=== PATIENT | female | born 1935 | race Caucasian/White ===

== ENCOUNTER 2024-03-10 11:48 | Outpatient (CLI) | payer MEDICARE, BC, SELFPAY | END 2024-03-10 11:49 | disposition home or self-care (01) | LOC: AMB 03-14 06:39 | PROVIDERS: PCP Surgery; Visit Provider Student in an Organized Health Care Education/Training Program | DX: R42 Dizziness and giddiness (principal) | CPT/HCPCS: A0425; A0429 ==

== ENCOUNTER 2024-03-10 12:11 | Emergency (ER) | payer MEDICARE, BC, SELFPAY ==
[2024-03-10] VITALS (12 sets, daily range): BP systolic 118–158; BP diastolic 54–98; PULSE 74–85; RESP 16–18; TEMP 37.7–38.6; O2SAT 90–96; BMI 21.6
--- NOTE | 2024-03-10 12:38 | CRLHL7_ITS ---
For Patients: As a result of the Cures Act, medical imaging exams and procedure reports are released immediately into your electronic medical record. You may view this report before your referring provider. If you have questions, please contact your health care provider. INDICATION: Fever. TECHNIQUE: Chest 2 views. COMPARISON: None FINDINGS: Cardiovascular and mediastinum: [id number] cardiomegaly with a CT ratio of 16.8/27.2. Normal mediastinum. Lungs and pleural spaces: Lungs are clear. No sign of infiltrate or mass. No sign of pleural effusion. No pneumothorax. Bones and soft tissues: Mild anterior wedging of a midthoracic vertebrae. Diffuse bone demineralization. IMPRESSION: [id number] cardiomegaly. Dictated by Wes Skelton MD @ 03/10/2024 1:19:33 PM (Electronically Signed)
[2024-03-10 13:13] LABS: PCR FLU A POSITIVE PCR FLU A (Negative); PCR FLU B Negative PCR FLU B (Negative); PCR RSV Negative PCR RSV (Negative); SARS PCR* Negative SARS-CoV-2 (Negative)
[2024-03-10 13:28] LABS: Lactate Sepsis w/Reflex* 1.2 mmol/L (0.5-1.9)
[2024-03-10 13:33] LABS: Basophils Absolute Auto 0.02 K/uL (0.00-0.30); Basophils Percent Auto 0.2 % (0.0-3.0); Eosinophils Absolute Auto 0.02 K/uL (0.00-0.50); Eosinophils Percent Auto 0.2 % (0.0-7.0); Hematocrit 34.2 % (33.0-51.0); Hemoglobin* 10.8 gm/dL (12.0-16.0); Immature Granulocytes Abs Auto 0.06 K/uL (0.00-0.30); Immature Granulocytes Pct Auto 0.7 %; Lymphocytes Percent Auto 6.2 % (20-44); Mean Corpuscular HGB Conc 32 gm/dL (32-36); Mean Corpuscular Hemoglobin 31 pg (26-34); Mean Corpuscular Volume 98 fL (80-100); Monocytes Percent Auto 14.8 % (0.0-11.0); Neutrophils Percent Auto 77.9 % (42.0-72.0); Platelet Count* 218 K/uL (140-440); RDW Coefficient of Variation % 11.8 % (11.5-15.5); Red Blood Count 3.48 m/uL (4.00-5.20); White Blood Count* 8.74 K/uL (4.50-11.00)
[2024-03-10 13:34] LABS: Slide Review Reflex No
[2024-03-10] MEDS: LACTATED RINGERS 1000 ML 1,000 ML IV (13:39)
[2024-03-10] MEDS: ACETAMINOPHEN 325 MG TABLET 650 MG PO (13:39)
[2024-03-10 13:46] LABS: Chloride* 103 mmol/L (96-114); Potassium* 4.1 mmol/L (3.6-5.1); Sodium* 138 mmol/L (135-149)
[2024-03-10 13:48] LABS: Anion Gap 6 mEq/L (7-15); Aspartate Amino Transferase* 21 U/L (12-35); Bilirubin Total* 0.4 mg/dL (0.1-1.5); Blood Urea Nitrogen* 21 mg/dL (7-30); Carbon Dioxide* 29 mmol/L (20-32); Creatinine* 0.9 mg/dL (0.5-1.5); Est. Creatinine Clearance* 34.99; Estimated Glomerular Filt Rate 61 ml/min; Total Protein* 8.9 g/dL (6.0-8.3)
[2024-03-10 13:49] LABS: Alanine Aminotransferase* 14 U/L (4-35); Alkaline Phosphatase* 84 U/L (40-150); Calcium* 9.3 mg/dL (8.4-10.6); Glucose* 103 mg/dL (60-115); Magnesium* 2.1 mg/dL (1.5-2.6)
[2024-03-10 14:01] LABS: Troponin I* 0.02 ng/mL (0.01-0.04)
--- NOTE | 2024-03-10 14:48 | ED_ITS ---
HPI - General Adult General Date Seen: 03/10/24 Chief complaint: Dizziness/Vertigo Stated complaint: dizziness Time Seen by Provider: 03/10/24 12:24 Source: patient Mode of arrival: ambulatory Limitations: no limitations History of Present Illness HPI narrative: Patient is an 88-year-old female presenting to emergency department for lightheadedness. States she woke up this morning feeling dizzy. When I asked if she felt like the room was spinning or she was on about she states no. She states he will feel like she is going to pass out. Symptoms resolve when she lays down. There only there when she gets up. Does not notice symptoms changing with head movement. States she felt warm like she had a fever earlier when she was at the clinic but now states she no longer feels warm. Denies chest pain, shortness of breath, headache, vision changes, weakness, numbness, abdominal pain, diarrhea, constipation. Not aware of any sick contacts. Does states she feels some fatigue. No other concerns noted Related Data Home Medications ?Medication ?Instructions ?Recorded ?Confirmed amlodipine 5 mg tablet 5 mg PO DAILY 01/25/23 03/10/24 atenolol 25 mg tablet mg PO QDAY 07/15/23 07/15/23 aspirin 81 mg tablet,delayed 81 mg PO DAILY 03/10/24 03/10/24 release (Adult Aspirin Regimen) Previous Rx's ?Medication ?Instructions ?Recorded cephalexin 500 mg capsule 500 mg PO QID #20 caps 03/10/24 ondansetron 4 mg disintegrating 4 mg PO Q6H #20 tabs 03/10/24 tablet oseltamivir 30 mg capsule 30 mg PO BID 5 days #10 caps 03/10/24 Allergies Allergy/AdvReac Type Severity Reaction Status Date / Time No Known Drug Allergies Allergy Verified 01/25/23 12:06 Review of Systems Status of ROS: Reports: 10 or more systems reviewed and unremarkable except as noted in History and below PFSH PFS Social History Smoking Status: Never smoker How often do you have a drink containing alcohol: never AUDIT-C Alcohol total score: 0 Non-prescribed substance use: denies use Exam Narrative: Exam Narrative: Const: Well-nourished, Well-developed, in mild distress Eyes: PERRL, no conjunctival injection, and symmetrical lids HENT: Atraumatic external nose and ears. Moist mucous membranes. Neck: Symmetric, trachea midline, No thyromegaly. CVS: RRR, No murmurs or gallops. Peripheral pulses 2+ and equal in all extremities RESP: Unlabored respiratory effort. Clear to auscultation bilaterally. GI: Nontender/Nondistended, No rebound or guarding. MSK:Extremities w/o deformity, Normal Active ROM Skin: Warm, Dry. No rashes or lesions. Neuro: Normal Muscle tone, No focal neurological deficits. Psych: Awake, Alert, & Oriented x3. Appropriate mood and affect. Const: Vital Signs, click to edit/add: Vital Signs - 24 hr 03/10/24 12:13 03/10/24 13:34 03/10/24 15:34 Temperature 101.4 F H 99.9 F H Pulse Rate [Pulse Oximeter] 79 Pulse Rate [orthos tatic lying] 75 Pulse Rate [orthos tatic sitting] 81 Pulse Rate [orthos tatic standing] 84 Respiratory Rate 18 Blood Pressure [Ri ght Upper Arm] 156/71 H Blood Pressure [or thostatic lying] 118/98 H Blood Pressure [or thostatic sitting] 130/61 Blood Pressure [or thostatic standing ] 125/57 L Pulse Oximetry 96 Oxygen Delivery Me thod Room Air Course Vital Signs Vital signs: Initial Vital Signs Temperature 101.4 F H 03/10/24 12:13 Temperature Source Temporal Artery Scan 03/10/24 12:13 Pulse Rate 79 03/10/24 12:13 Respiratory Rate 18 03/10/24 12:13 Blood Pressure 156/71 H 03/10/24 12:13 Blood Pressure Mean 99 03/10/24 12:13 Blood Pressure Position Supine 03/10/24 12:13 Pulse Oximetry 96 03/10/24 12:13 Oxygen Delivery Method Room Air 03/10/24 12:13 Vital Signs Temperature 101.4 F H 03/10/24 12:13 Pulse Rate 79 03/10/24 12:13 Respiratory Rate 18 03/10/24 12:13 Blood Pressure 156/71 H 03/10/24 12:13 Pulse Oximetry 96 03/10/24 12:13 Oxygen Delivery Method Room Air 03/10/24 12:13 Temperature 99.9 F H 03/10/24 15:34 Pulse Rate 75 12/31/24 13:34 Respiratory Rate 18 03/10/24 12:13 Blood Pressure 118/98 H 03/10/24 13:34 Pulse Oximetry 96 03/10/24 12:13 Oxygen Delivery Method Room Air 03/10/24 12:13 Medications Administered Medications: Discontinued Medications Generic Name Dose Route Start Last Admin Trade Name Anthony PRN Reason Stop Dose Admin Acetaminophen 650 mg 03/10/24 12:38 03/10/24 13:39 Acetaminophen 325 Mg Tablet PO 03/10/24 12:39 650 mg ONCE ONE Administration Lactated Ringer's 1,000 mls @ 1,000 mls/hr 03/10/24 12:38 03/10/24 13:39 Lactated Ringers 1000 Ml IV 03/10/24 13:37 1,000 mls/hr .Q1H ONE Administration Ondansetron HCl 4 mg 03/10/24 15:17 03/10/24 15:28 Ondansetron 2 Mg/Ml Inj IVP 03/10/24 15:18 4 mg ONCE ONE Administration Oseltamivir Phosphate 30 mg 03/10/24 15:00 03/10/24 15:32 Oseltamivir 30 Mg Capsule PO 03/10/24 15:01 30 mg ONCE ONE Administration Medical Decision Making [facility] Narrative Medical decision making narrative: Patient is an 88-year-old female presenting to emergency department for fever and lightheadedness. She states she feels dizzy but based on her description does sound more like lightheadedness. Her vital signs appear stable at this time. She does have a fever though so Tylenol will be given. With that fever I will start a blood culture and lactate as she is more likely to meet SIRS criteria. Also do COVID/flu/RSV swab. Chest x-ray ordered to look for signs of pneumonia. Also an EKG, troponin, CMP, magnesium, urinalysis. She states she has not been drinking as much as she should so will give her L of fluids for likely dehydration. The dehydration could also be part of what is causing her symptoms. Will do orthostatic blood pressures after fluid is infused. She is flu positive. Will give her a dose of Tamiflu. She does need requirements for renal dosing per pharmacy. EKG reviewed by myself shows no concerning abnormalities. Chest x-ray reviewed by myself and the radiologist shows [id number] cardiomegaly but no other concerning findings. She is looking much much better after the fluids. Orthostatic blood pressures were normal and she was asymptomatic. Was able to ambulate around the department without issues. Her family states she looks much better. Patient states she feels much better and feels comfortable with discharge. I will discharge her with Tamiflu, Zofran. Urinalysis also shows signs of a UTI and I will treat her with antibiotics. She is agreeable to this plan. Lab Data Labs: Lab Results 03/10/24 03/10/24 03/10/24 Range/Units 12:26 13:05 13:15 WBC 8.74 (4.50-11.00) K/uL RBC 3.48 L (4.00-5.20) m/uL Hgb 10.8 L (12.0-16.0) gm/dL Hct 34.2 (33.0-51.0) % MCV 98 (80-100) fL MCH 31 (26-34) pg MCHC 32 (32-36) gm/dL RDW Coeff of [place] 11.8 (11.5-15.5) % Plt Count 218 (140-440) K/uL Neut % (Auto) 77.9 H (42.0-72.0) % Lymph % (Auto) 6.2 L (20-44) % [place] % (Auto) 14.8 H (0.0-11.0) % Eos % (Auto) 0.2 (0.0-7.0) % Baso % (Auto) 0.2 (0.0-3.0) % Neut # (Auto) 6.80 (1.7-7.0) K/uL Lymph # (Auto) 0.50 L (0.90-2.90) K/uL [place] # (Auto) 1.30 H (0.00-0.90) K/UL Eos # (Auto) 0.02 (0.00-0.50) K/uL Baso # (Auto) 0.02 (0.00-0.30) K/uL Abs Immat Gran (auto) 0.06 (0.00-0.30) K/uL Imm/Tot Granulo (auto) 0.7 % Sodium 138 (135-149) mmol/L Potassium 4.1 (3.6-5.1) mmol/L Chloride 103 (96-114) mmol/L Carbon Dioxide 29 (20-32) mmol/L Anion Gap 6 L (7-15) mEq/L BUN 21 (7-30) mg/dL Creatinine 0.9 (0.5-1.5) mg/dL Estimated Creat Clear 34.99 Estimated GFR 61 ml/min Glucose 103 (60-115) mg/dL Lactate 1.2 (0.5-1.9) mmol/L Calcium 9.3 (8.4-10.6) mg/dL Magnesium 2.1 (1.5-2.6) mg/dL Total Bilirubin 0.4 (0.1-1.5) mg/dL AST 21 (12-35) U/L ALT 14 (4-35) U/L Alkaline Phosphatase 84 (40-150) U/L Troponin I 0.02 (0.01-0.04) ng/mL Total Protein 8.9 H (6.0-8.3) g/dL Albumin 4.0 (3.3-5.0) g/dL Urine Color (Yellow) Urine Appearance (Clear) Urine pH (5.0-8.5) Ur Specific [place] (1.000-1.030) Urine Protein (Negative) Urine Glucose (UA) (Negative) Urine Ketones (Negative) Urine Blood (Negative) Urine Nitrite (Negative) Urine Bilirubin (Negative) Urine Urobilinogen (0.2-1.0) Ur Leukocyte Esterase (Negative) Urine RBC (0-2) Urine WBC (0-5) Ur Squamous Epith Cells (None-Few) Urine Bacteria (None) SARS-CoV-2 (PCR) Negative SARS-CoV-2 Cancelled (Negative) Influenza Type A (PCR) POSITIVE PCR FLU A A Cancelled (Negative) Influenza Type B (PCR) Negative PCR FLU B Cancelled (Negative) RSV (PCR) Negative PCR RSV Cancelled (Negative) 03/10/24 Range/Units 15:00 WBC (4.50-11.00) K/uL RBC (4.00-5.20) m/uL Hgb (12.0-16.0) gm/dL Hct (33.0-51.0) % MCV (80-100) fL MCH (26-34) pg MCHC (32-36) gm/dL RDW Coeff of [place] (11.5-15.5) % Plt Count (140-440) K/uL Neut % (Auto) (42.0-72.0) % Lymph % (Auto) (20-44) % [place] % (Auto) (0.0-11.0) % Eos % (Auto) (0.0-7.0) % Baso % (Auto) (0.0-3.0) % Neut # (Auto) (1.7-7.0) K/uL Lymph # (Auto) (0.90-2.90) K/uL [place] # (Auto) (0.00-0.90) K/UL Eos # (Auto) (0.00-0.50) K/uL Baso # (Auto) (0.00-0.30) K/uL Abs Immat Gran (auto) (0.00-0.30) K/uL Imm/Tot Granulo (auto) % Sodium (135-149) mmol/L Potassium (3.6-5.1) mmol/L Chloride (96-114) mmol/L Carbon Dioxide (20-32) mmol/L Anion Gap (7-15) mEq/L BUN (7-30) mg/dL Creatinine (0.5-1.5) mg/dL Estimated Creat Clear Estimated GFR ml/min Glucose (60-115) mg/dL Lactate (0.5-1.9) mmol/L Calcium (8.4-10.6) mg/dL Magnesium (1.5-2.6) mg/dL Total Bilirubin (0.1-1.5) mg/dL AST (12-35) U/L ALT (4-35) U/L Alkaline Phosphatase (40-150) U/L Troponin I (0.01-0.04) ng/mL Total Protein (6.0-8.3) g/dL Albumin (3.3-5.0) g/dL Urine Color Yellow (Yellow) Urine Appearance Clear (Clear) Urine pH 7.5 (5.0-8.5) Ur Specific [place] 1.020 (1.000-1.030) Urine Protein Negative (Negative) Urine Glucose (UA) Negative (Negative) Urine Ketones Negative (Negative) Urine Blood Negative (Negative) Urine Nitrite Negative (Negative) Urine Bilirubin Negative (Negative) Urine Urobilinogen 0.2 (0.2-1.0) Ur Leukocyte Esterase 2+ A (Negative) Urine RBC 0-2 (0-2) Urine WBC 10-25 A (0-5) Ur Squamous Epith Cells Few (None-Few) Urine Bacteria Few A (None) SARS-CoV-2 (PCR) (Negative) Influenza Type A (PCR) (Negative) Influenza Type B (PCR) (Negative) RSV (PCR) (Negative) Imaging Data Chest x-ray: Attestation: I have reviewed the pertinent imaging results. Radiologist's impression: [id number] cardiomegaly. Dictated by Wes Skelton MD @ 03/10/2024 1:19:33 PM ECG Data Attestation: I personally reviewed and interpreted this ECG as follows: Prior ECG tracings: not available for review Interpretation: Normal sinus rhythm with a rate of 80 beats per minute, normal intervals, normal axis, no ST or T-wave abnormality Discharge Plan Discharge Clinical Impression: Influenza, Acute UTI, Dehydration Patient Disposition: Home, Self-Care Condition: Stable Instructions: Dehydration (ED), Influenza (DC) Additional Instructions: Take the cephalexin antibiotic as directed. Use Zofran as needed for nausea. Take Tamiflu as directed. Is important you stay well-hydrated. I believe most of your symptoms are due to dehydration secondary from influenza. Return to emergency department for new or worsening symptoms. Prescriptions: New cephalexin 500 mg capsule 500 mg PO QID Qty: 20 0RF ondansetron 4 mg tablet,disintegrating 4 mg PO Q6H Qty: 20 0RF oseltamivir 30 mg capsule 30 mg PO BID 5 Days Qty: 10 0RF No Action amlodipine 5 mg tablet 5 mg PO DAILY atenolol 25 mg tablet PO QDAY aspirin [Adult Aspirin Regimen] 81 mg tablet,delayed release (DR/EC) 81 mg PO DAILY Follow Up/Referrals: Lino James MD [Primary Care Provider] - Stand Alone Forms: [facility] Info Instructions
[2024-03-10 15:20] LABS: Appearance Urine Clear (Clear); Bilirubin Urine Negative (Negative); Blood Urine Negative (Negative); Color Urine Yellow (Yellow); Glucose Urine Negative (Negative); Ketones Urine Negative (Negative); Leukocyte Esterase Urine 2+ (Negative); Nitrite Urine Negative (Negative); Protein Urine Negative (Negative); Urobilinogen Urine 0.2 (0.2-1.0); pH Urine 7.5 (5.0-8.5)
[2024-03-10] MEDS: ONDANSETRON 2 MG/ML inj 4 MG IVP (15:28)
[2024-03-10] MEDS: OSELTAMIVIR 30 MG CAPSULE PO (15:32)
[2024-03-10 15:36] LABS: Bacteria Urine Few; RBC Urine 0-2 (0-2); Squamous Epithelial Cell Urine Few (None-Few)
== END 2024-03-10 16:00 | disposition home or self-care (01) ==
PROVIDERS: Emergency Provider Student in an Organized Health Care Education/Training Program; PCP Surgery
DX: J11.1 Influenza due to unidentified influenza virus with other respiratory manifestations (principal); N39.0 Urinary tract infection, site not specified; E86.0 Dehydration
CPT/HCPCS: 36415; 71046; 80053; 81001; 83605; 83735; 84484; 85025; 87040; 87086; 87186; 87631; 93005; 96361; 96374; 99284; 99285; A9270; J2405; J7120

== ENCOUNTER 2024-09-01 07:43 | Outpatient (CLI) | payer MEDICARE, BC, SELFPAY ==
--- OUTSIDE RECORDS SUMMARY | 2024-09-03 12:35 | XMS_ITS | Encounter Summary ---
Author Organization [facility] Address [address] [place] [address] Care Team Providers Care Video Effects Editor Name Role Phone Unavailable Primary Care Provider Unavailabl e Encounter Details Date Type Department Care Team (Late st Contact Info) Description 07/20/2024 Orders Only Pharmacy Prior Auth [place] [phone] Camille Mc [address] [place] [address] Social History Tobacco Use Types Packs/Day Years Used Date Smoking Tobacco: Never Smokeless Tobacco: Never Alcohol Use Standard Drinks/Week Comments Never 0 (1 standard drink = 0.6 oz pur e alcohol) [facility] Utilities Answer Date Recorded In the [...] your living situation today? I have a [facility] place to live 07/07/2024 Comments No Sex [...] PM [facility] Division of Hematology in [place], [place] [address] [place] [address] Roger Mann M.D. [address] [place] [address] documented as of this encounter Visit Diagnoses Not on filedocumented in this encounter Additional Health Concerns Infection Onset Date Last Indicated Resolved Time Protective Environment 07/15/2024 07/15/2024 documented as of this encounter
--- OUTSIDE RECORDS SUMMARY | 2024-09-03 12:36 | XMS_ITS | Clinical Summary ---
Author Organization [facility] Address [address] [place] [address] Care Team Providers Care Decay Control Operator Name Role Phone Unavailable Primary Care Provider Unavailabl e Source Comments Patient records contain information from all sites at [facility]. For routine questions regarding patient records, call [phone] during business hours, M-F 8:00 AM - 5:00 PM Central Time. Record requests for emergency care only can be directed to [phone] at any time.[facility] Allergies No known active allergies Medications [...] PM CDT 07/16/19 25 Active RX WELCOME MNNCAB-SCXTYJBQL-TE ONLY Welcome packet 1 each 07/31/2024 1:04 [...] 08/19/2024 Results Follow-Up Division of Hematology in [place], [place] [address] [place] [address] Loni Escamilla, RSenaitN. CBC with Differential, Blood 08/18/2024 Orders Only Division of Hematology in [place], [place] [address] [place] [address] External, Ordering Provider, M.D. 07/30/2024 Specialty Pharmacy [facility] [id number] [place] [phone] Ching Shea, Pharm.D., R.Ph. 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 Specialty Pharmacy Delivery 07/30/2024 Specialty Pharmacy [facility] [address] [phone] Elissa Frey, Pharm.D., R.Ph. 07/21/2024 Specialty Pharmacy [facility] [address] [phone] Manpreet Sagastume, Pharm.D., R.Ph. 07/20/2024 Orders Only Pharmacy [place] Auth [place] [phone] Camille Mc 07/17/2024 Orders Only Pharmacy [place] [phone] Camille Mc 07/15/2024 2:00 PM CDT Telemedicine Division of Hematology in [place], [place] [address] [place] [address] Heidy Fischer M.D. 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) 07/13/2024 3:26 PM CDT - 07/13/2024 11:59 PM CDT Hospital Encounter [place], [place] [address] [place] [address] Heidy Fischer M.D. 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) 07/07/2024 Orders Only Division of Hematology in [place], [place] [address] [place] [phone] Roger Mann M.D. 07/06/2024 Clinical Communication Division of Hematology in [place], [place] [address] [place] [phone] Heidy Fischer M.D. Follow-up Orders 07/03/2024 10:00 AM CDT Comprehensive Visit Department of Ophthalmology in [place], [place] [address] [place] [phone] Destiny Pearce M.D. Intraocular Lens Implant Status Post (Primary Dx); 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) 07/03/2024 7:41 AM CDT Anesthesia Event Outpatient Procedure Center in [place], [place] [address] [place] [phone] Belle Cardenas APRN, CRNA, D.NAkosua Barrett M.D. 07/03/2024 6:36 AM CDT - 07/03/2024 11:59 PM CDT Hospital Encounter Outpatient Procedure Center in [place], [place] [address] [place] [phone] Heidy Fischer M.D. Donnelly, Megan L, APRN, CRNA, D.N.P. 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) Discharge Disposition: Home or Self Care 07/02/2024 2:30 PM CDT Comprehensive Visit Division of Hematology in [place], [place] [address] [place] [phone] Roger Mann M.D. 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) Discharge Disposition: Home or Self Care 07/02/2024 1:00 PM CDT Clinical Support - [facility] Division of Hematology in [address] [phone] Jane Morrow 07/02/2024 Clinical Communication Department of Ophthalmology in [address] [phone] Provider, Unknown 06/30/2024 8:45 AM CDT Clinical Communication Virtual Review in [place], [place] [address] [place] [address] Pre-visit Intake 06/16/2024 Clinical Communication [facility] [place], [place] [address] [place] [phone] Alexandre Benítez M.D. from Last 3 Months Social History Tobacco Use Types Packs/Day Years Used Date Smoking Tobacco: Never Smokeless Tobacco: Never Tobacco Cessation:Counseling Given: Not Answered Alcohol Use Standard Drinks/Week Comments Never 0 (1 standard drink = 0.6 oz pur e alcohol) [facility] Utilities Answer Date Recorded In the past [...] your living situation today? I have a [employer] place to live 07/07/2024 Comments No Sex [...] PM CDT Telemedicine Division of Hematology in [place], [place] [address] [place] [address] Roger Mann M.D. [address] [place] [address] Health Maintenance Due Date Last Done Comments [...] HEMATOLOGIC, BM Routine 07/03/2024 7:55 AM CDT [place] DX BONE MARROW BX & ASPIR Routine [...] 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) [id number] (BETA-2-M), S Routine 07/02/2024 2:11 PM CDT [...] RADIOPHARMACEUTICAL/MEDS: Route: intravenous fludeoxyglucose F 18 injection [facility] (F-18 FDG),9.99 millicurie TECHNIQUE: F18 FDG PET/CT [...] RADIOPHARMACEUTICAL/MEDS: Route: intravenous fludeoxyglucose F 18 injection [facility] (F-18 FDG),9.99 millicurie TECHNIQUE: F18 FDG PET/CT [...] 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 The result should NOT [...] coexisting with a MYD88 L265P mutation. A XYR14-U464W/CXCR4-W T (wild type) molecular signature is associated with similar overall survival, higher response to ibrutinib in previously treated patients, more adenopathy, and similar or lower bone marrow disease burden and serum IgM levels in comparison to those with co-occurring HVZ77-T582M/CXCR4-W HIM mutations. In contrast, rare cases of apparent LPL with CQH60-FU/CXCR4-WT molecular signature have demonstrated inferior overall survival, lower response to ibrutinib therapy in previously treated patients, and lower bone marrow disease burden and serum IgM levels in comparison to those harboring a MYD88 L265P mutation (Angelon et al., 2014, [id number]; 2015, [id number]; Zoey et al., 2016, [id number]). Interpretation of the result in the context of all available clinical laboratory and morphologic information is recommended. Method Summary: The C-terminus end of CXCR4 (NM_003467.2, c.530-6197) is amplified from extracted genomic DNA by polymerase chain reaction (PCR), followed by [place] sequencing and capillary electrophoresis analysis. Review of the sequence data is performed using a combination of automated calls and manual inspection (Unpublished Page method). The hotspot mutation c.1013 C>A/G (p.S338*) is examined using bridged nucleic acid (BNA) clamping-enhanced [place] sequencing with an analytic sensitivity of 1%. All other genetic variants in the test region are examined by regular [place] sequencing with the analytic sensitivity of 15-20%. Signing Pathologist: Neda Saleem M.D. 07/10/2024 3:23 PM CDT DTL Comment: ----ADDITIONAL INFORMATION---- This test was developed and its performance characteristics determined by [facility] in a manner consistent with CLIA requirements. This test has not been cleared or approved by the U.S. Food and Drug Administration. 07/03/2024 7:55 AM CDT 07/03/2024 10:50 AM CDT us Roger Mann M.D. LAB GENETIC TESTING Fin al Result [facility] [address] [place] [address], [facility] D[facility] [address] [facility] [address] [place] [address] * Leukemia/Lymphoma Immunophenotyping by Flow Cytometry (07/03/2024 7:55 AM CDT) LCMS Result Performed 07/06/2024 8:55 AM CDT DTL Specimen Source Bone marrow 07/06/2024 8:55 AM CDT DTL Final Diagnosis: These results are considered ancillary findings and require complete integration with the current pathology case [id number] for final interpretation. The result should NOT [...] performance characteristics were determined by [facility] in a manner consistent with CLIA requirements. This test has not been cleared or approved by the U.S. Food and Drug Administration. 07/03/2024 7:55 AM CDT 07/03/2024 10:46 AM CDT us Roger Mann M.D. LAB GENETIC TESTING Fin al Result [facility] [address] [place] [address], [facility] 200 [facility] [address] [place] [address] * Chromosome Analysis, Hematologic Disorders, Bone Marrow (07/03/2024 7:55 AM CDT) Pathologist [facility] Result Summary Normal 07/13/2024 8:36 AM CDT [...] of the testing process was performed at [facility] site [id number], [id number]. 07/13/2024 8:36 AM CDT DTL Released by Nancy Elliott M.D. 07/13/2024 8:36 AM CDT DTL Interpretation No clonal abnormality was apparent. This test was ordered in the context of a [facility] pathology consultation/ca se (#[id number]), and this result should be interpreted within the context of the pathology consultation/re port. 07/13/2024 8:36 AM CDT DTL Bone Marrow 07/03/2024 7:55 AM CDT 07/03/2024 11:13 AM CDT us Roger Mann M.D. LAB GENETIC TESTING Fin al Result [facility] [address] [place] [address], [facility] [address] [place] [address] * IA DX BONE MARROW BX & ASPIR (07/03/2024 [...] (07/03/2024 12:00 AM CDT) 07/06/2024 9:12 AM [facility] Report electronically signed by Kenny Sutton M.D., Ph.D. I verify that I have examined all relevant slides/materials for the specimen(s) and rendered or confirmed the diagnosis. 07/06/2024 9:12 AM [facility] Gross Description B: Core biopsy specimens were [...] C1. Grossed by OER. 07/06/2024 9:12 AM [facility] Addendum ADDENDUM Cytogenetic analysis, bone marrow ([id number], 07/03/2024): 46,XX[20] No clonal abnormality was apparent. See cytogenetics report for complete details. 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 Molecular analysis for reflex testing of MYD88 and CXCR4, bone marrow ([id number]; 07/03/2024): Bone marrow, MYD88 L265P Mutation Analysis, [...] coexisting with a MYD88 L265P mutation. A NSA36-U979P/CXCR4-WT (wild type) molecular signature is associated with similar overall survival, higher response to ibrutinib in previously treated patients, more adenopathy, and similar or lower bone marrow disease burden and serum IgM levels in comparison to those with co-occurring TVZ73-A287I/CXCR4-WH IM mutations. In contrast, rare cases of apparent LPL with IKX00-AL/CXCR4-WT molecular signature have demonstrated inferior overall survival, lower response to ibrutinib therapy in previously treated patients, and lower bone marrow disease burden and serum IgM levels in comparison to those harboring a MYD88 L265P mutation (Angelon et al., 2014, [id number]; 2015, [id number]; Zoey et al., 2016, [id number]). Interpretation of the result in the context of all available clinical laboratory and morphologic information is recommended. Method Summary: The C-terminus end of CXCR4 (NM_003467.2, c.578-3966) is amplified from extracted genomic DNA by polymerase chain reaction (PCR), followed by [place] sequencing and capillary electrophoresis analysis. Review of the sequence data is performed using a combination of automated calls and manual inspection (Unpublished Page method). The hotspot mutation c.1013 C>A/G (p.S338*) is examined using bridged nucleic acid (BNA) clamping-enhanced [place] sequencing with an analytic sensitivity of 1%. All other genetic variants in the test region are examined by regular [place] sequencing with the analytic sensitivity of 15-20%. See molecular report for complete details. Molecular Hematopathology studies interpreted by Neda Saleem M.D. Signed by Kenny Sutton M.D., Ph.D. 07/13/2024 3:04 PM 07/13/2024 3:04 PM T [facility] Comment:REVISED RESULTS Interpretation FINAL DIAGNOSIS Peripheral [...] for 1 week. 07/13/2024 3:04 PM CDT [facility] 07/03/2024 07/03/2024 5:3 1 AM CDT Roger Mann M.D. LAB SURG PATH ORDERABLE S Edited Result - Final [facility] [address] [place] [address], [facility] [address] [place] [address] * (ABNORMAL) Quantitative M-protein Study (07/02/2024 2:11 [...] its performance characteristics determined by [facility] in a manner consistent with CLIA requirements. This test has not been cleared or approved by the U.S. Food and Drug Administration. Blood (Blood, Venous) 07/02/2024 2:11 PM CDT 07/03/2024 6:35 AM CDT [facility] - 07/03/2024 3:23 PM CDT Specimen Information: Specimen ID: [id number] Specimen Type: Blood Specimen Collection Start Date: 07/02/2024 2:11 PM Specimen Received Date: 07/03/2024 6:35 AM Specimen ID: [id number] Specimen Type: Blood Specimen Collection Start Date: 07/02/2024 2:11 PM Specimen Received Date: 07/03/2024 6:28 AM Heidy Fischer M.D. LAB BLOOD ADD-ON Final Res ult [facility] [address] [place], [place] [phone] [place] [address] [place] [address] [place] [address] [place] [address] [place] [address] * (ABNORMAL) Immunoglobulin Free Light Chains (07/02/2024 2:11 PM CDT) Pathologist [facility] Velva Free Light Chain, S 0.6900 0.3300 - 1.94 mg/dL 07/03/2024 10:38 AM CDT [facility] Lambda Free Light Chain, S 16.1(H) 0.5700 - 2.63 mg/dL 07/03/2024 10:54 AM CDT [facility] Velva/Lambda FLC Ratio 0.0429(L) 0.2600 - 1.65 07/03/2024 10:54 AM CDT [facility] Blood (Blood, Venous) 07/02/2024 2:11 PM CDT 07/03/2024 6:36 AM CDT us Heidy Fischer M.D. LAB BLOOD ADD-ON Final Res ult [facility] [address] [place] [address] [facility] [address] [place] [id number] * von Willebrand Disease Profile (07/02/2024 2:11 PM CDT) [facility] von Willebrand Disease Tech Inter SEE COMMENT [...] This test has been modified from the crime victim specialist's instructions. Its performance characteristics were determined by [facility] in a manner consistent with CLIA requirements. This test has not been cleared or approved by the U.S. Food and Drug Administration. von Willebrand Factor Ag, P 66 55 - 200 % 07/03/2024 10:01 AM CDT DTL Comment: ----ADDITIONAL INFORMATION---- This test has been modified from the crime victim specialist's instructions. Its performance characteristics were determined by [facility] in a manner consistent with CLIA requirements. This test has not been cleared or approved by the U.S. Food and Drug Administration. von Willebrand Factor Activity, P 58 55 - 200 % 07/03/2024 10:16 AM CDT DT Comment: ----ADDITIONAL INFORMATION---- This test has been modified from the crime victim specialist's instructions. Its performance characteristics were determined by [facility] in a manner consistent with CLIA requirements. This test has not been cleared or approved by the U.S. Food and Drug Administration. Blood (Blood, Venous) 07/02/2024 2:11 PM CDT 07/02/2024 2:37 PM CDT Narrative [facility] - 07/03/2024 10:16 AM CDT Specimen Information: Specimen ID: [id number] Specimen Type: Blood Specimen Collection Start Date: 07/02/2024 2:11 PM Specimen Received Date: 07/02/2024 2:37 PM Specimen ID: [id number] Specimen Type: Blood Specimen Collection Start Date: 07/02/2024 2:11 PM Specimen Received Date: 07/02/2024 2:37 PM Specimen ID: [id number] Specimen Type: Blood Specimen Collection Start Date: 07/02/2024 2:11 PM Specimen Received Date: 07/02/2024 2:37 PM Heidy Fischer M.D. LAB BLOOD ADD-ON Final Res ult [facility] [address] [place] [address], [facility] [address] [place] [address] * APTT (Activated Partial Thromboplastin Time) (07/02/2024 2:11 PM CDT) Pathologist [facility] Activated Partial Thrombopl Time, P 34 25 - 37 sec 07/02/2024 3:06 PM CDT DTL Blood (Blood, Venous) 07/02/2024 2:11 PM CDT 07/02/2024 2:32 PM CDT us Heidy Fischer M.D. LAB BLOOD ADD-ON Final Res ult Performing Organization Address City/[facility]/ZIP Co de Phone Number [facility] [address] [place] [address], [facility] [address] [place] [address] * Prothrombin Time (PT) (07/02/2024 2:11 PM [...] ADD-ON Final Res ult Performing Organization Address [facility] Co de Phone Number [facility] [address] [place] [address], [facility] [address] [place] [address] * LD (Lactate Dehydrogenase) (07/02/2024 2:11 PM CDT) Lactate Dehydrogenase (LD), S 130 122 - 222 U/L 07/02/2024 3:17 PM CDT DTL Blood (Blood, Venous) 07/02/2024 2:11 PM CDT 07/02/2024 2:46 PM CDT us Heidy Fischer M.D. LAB BLOOD NON ADD-ON Final Result Performing Organization Address City/[facility] Co de Phone Number [facility] [address] [place] [address], [facility] DTL [facility] [address] [place] [address] * (ABNORMAL) Hgnb-6-Wpqnkjaocjdip (Beta-2-M) (07/02/2024 2:11 PM CDT) Pathologist [facility] Hakb-3-Sqymhwj obulin, S 4.94(H) 1.21 - 2.70 mcg/mL 07/03/2024 10:18 AM CDT [facility] Blood (Blood, Venous) 07/02/2024 2:11 PM CDT 07/03/2024 6:35 AM CDT us Heidy Fischer M.D. LAB BLOOD ADD-ON Final Res ult [facility] [address] [place] [address] [facility] [address] [place] [address] * (ABNORMAL) Comprehensive Metabolic Panel (07/02/2024 2:11 PM CDT) Pathologist [facility] Potassium, S 4.8 3.6 - 5.2 mmol/L [...] M.D. LAB BLOOD ADD-[place] [address], [place] [address] * (ABNORMAL) Viscosity (07/02/2024 2:10 PM CDT) Viscosity, S 1.9(H) <=1.5 cpoise 07/06/2024 12:44 PM CDT [facility] Comment: Suggest QMPSS. ----ADDITIONAL INFORMATION---- This test has been modified from the crime victim specialist's instructions. Its performance characteristics were determined by [facility] in a manner consistent with CLIA requirements. This test has not been cleared or approved by the U.S. Food and Drug Administration. Blood (Blood, Venous) 07/02/2024 2:10 PM CDT 07/03/2024 8:11 AM CDT Heidy Fischer M.D. LAB BLOOD NON ADD-ON Final Result [facility] [address] [place] [id number] [facility] [address] [place] [id number] from Last 3 Months Additional Health Concerns Infection Onset Date Last Indicated Protective Environment 07/15/2024 Insurance MEDICARE [facility]
--- OUTSIDE RECORDS SUMMARY | 2024-09-03 12:37 | XMS_ITS | Clinical Summary ---
Author Organization [employer] Address [address] [place] [address] Care Team Providers Care Manager Analytical Name Role Phone Orlando Mercer Unavailable [phone] Lino James MD Primary Care Provider [phone] Allergies No known active allergies Medications aspirin [...] Encounters Date Type Department Care Team Description 09/01/2024 Orders Only [facility] Scanner 1 scan: (1-Ord) [facility], CT ANGIO CHEST PE PROTOCOL, 09/01/2024 09/01/2024 Orders Only [facility] Scanner 1 scan: (1-Ord) [facility], RIBS LT 2V, 09/01/2024 08/25/2024 9:40 AM CDT Office Visit [facility] [address] [place] [address] Lino James MD Follow Up 08/25/2024 Travel 08/18/2024 Travel 07/14/2024 8:30 AM CDT Office Visit [facility] [address] [facility] [id number] Rajan Stack MD Consult (Congestive heart failure, severe mitral regurgitation per Dr. James ) 07/14/2024 Travel 06/16/2024 Telephone [facility] [address] [facility] [address] Lino James MD Referral 06/04/2024 Telephone [facility] [place] [address] [place] [address] Cherelle Acosta, DIAZO TECHNICIAN Appointment 06/03/2024 Orders Only [facility] [address] [place] [address] Lino James MD <No scans attached> from [...] on file Legal Sex Female 6:23 AM GEOSPATIAL SPECIALIST Gender Identity Not on file Sexual Orientation [...] 162 cm (5' 3.78) 04/28/2024 4:05 PM GEOSPATIAL SPECIALIST Body Mass Index 21.62 04/28/2024 4:05 PM GEOSPATIAL SPECIALIST Plan of Treatment Upcoming Encounters Date Type Department Care Team (Late st Contact Info) Description 09/08/2024 2:15 PM CDT Orders Only [facility] [address] [place] [address] Lab, [place] Health Maintenance Due Date Last [...] Procedure Name Priority Date/Time Associated Diagnosis Comments SCAN-CT INTERPRETATION 12:00 AM CDT SCAN-RADIOLOGY REPORT 09/01/2024 12:00 AM CDT XR DXA BONE DENSITY 2 SITES AXIAL Routine 07/05/2011 8:48 AM CDT Senile osteoporosis from Last 3 Months or Most Recently Relevant to Health Maintenance Results * SCAN-RADIOLOGY REPORT (09/01/2024 12:00 AM CDT) Anatomical Region Laterality Modality Other us Scanner OTHER Final Result * SCAN-CT INTERPRETATION (09/01/2024 12:00 AM CDT) Anatomical Region Laterality Modality Other us Scanner OTHER Final Result * XR DEXA BONE DENSITY 2 SITES [...] to Health Maintenance Insurance MEDICARE PB ONLY [facility] MEDICARE PART B HB ONLY Advance Directives Documents on File Type Date Recorded Patient Layout Technician Expl anation Healthcare Directive 08/08/2011 10:13 AM H CD * Full Code (Latest Code Status on File) Date Activated Date Inactivated Comments 09/17/2018 10:34 AM 09/18/2018 2:22 AM Question Answer Comments Code Status Discussion: Not Discussed * Full Code Date Activated Date Inactivated Comments 07/24/2018 10:01 AM 07/25/2018 5:35 PM Care Teams Manager Analytical Relationship Specialty Start Date End Date Lino James MD [address] [place] [address] PCP - General Family Practice 03/19/13 Orlando Mercer [address] [place] [address] Chef Broiler Or Fry 07/02/11
--- OUTSIDE RECORDS SUMMARY | 2024-09-03 12:37 | XMS_ITS | Encounter Summary ---
Author Organization [facility] Address [address] [place] [address] Care Team Providers Care Narcotics Investigator Name Role Phone Unavailable Primary Care Provider Unavailabl e Encounter Details Date Type Department Care Team (Late st Contact Info) Description 07/21/2024 Specialty Pharmacy [facility] [id number] [place] [id number] Manpreet Sagastume, Pharm.D., R.Ph. [address] [place] [address] Social History Tobacco Use Types Packs/Day Years Used Date Smoking Tobacco: Never Smokeless Tobacco: Never Alcohol Use Standard Drinks/Week Comments Never 0 (1 standard drink = 0.6 oz pur e alcohol) [facility] Utilities Answer Date Recorded In the [...] your living situation today? I have a [facility] place to live 07/07/2024 Comments No Sex and Gender Information Value Date Recorded Sex Assigned at Female 07/07/2024 9:11 PM CDT Legal Sex Female 3:08 PM CDT Gender Identity Female 07/07/2024 9:11 PM CDT Sexual Orientation Straight 07/07/2024 9: 11 PM CDT documented as of this encounter Miscellaneous Notes * Telephone Encounter - Manpreet Sagsatume, Pharm.D., R.Ph. - 07/21/2024 2:22 PM CDT Note created for purposes of potential enrollment with [facility] and medication interaction check via Factual interaction core checker. No telephone contact with patient at this point. documented in this encounter Plan of Treatment Upcoming Encounters Date Type Department Care Team (Late st Contact Info) Description 09/15/2024 2:00 PM CDT Telemedicine Division of Hematology in [place], [place] [address] [place] [address] Roger Mann M.D. [address] [place] [address] documented as of this encounter Visit Diagnoses Not on filedocumented in this encounter Additional Health Concerns Infection Onset Date Last Indicated Resolved Time Protective Environment 07/15/2024 07/15/2024 documented as of this encounter
--- OUTSIDE RECORDS SUMMARY | 2024-09-03 12:38 | XMS_ITS | Encounter Summary ---
Author Organization [facility] Address [address] [place] [address] Care Team Providers Care Char Filter Tank Tender Head Name Role Phone Unavailable Primary Care Provider Unavailabl e Encounter Details Date Type Department Care Team (Latest Contact Info) Description 07/30/2024 Specialty Pharmacy [facility] [address] [place] [id number] Ching Shea, Pharm.D., R.Ph. 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 I have a [facility] place to live 07/07/2024 Comments No [...] [facility] Daughter verified medication list is up to [...] after last dose. Educational resource/decision support tools: www.[employer] and patient support programs on that site as well as [facility]. The caregiver was attentive and ready to [...] sensitivity, medication and health history considered at patent counsel (renal function if available). To optimize outcomes, patient assessed for the need of other possible supportive therapies and informed of importance of proper monitoring and future reassessment. The patient/caregiver's prior education on this new therapy and disease specific knowledge were assessed with counseling and education tailored to this level of understanding. Real concerns and questions were addressed. Patient specific considerations/desires/requests noted at patent counsel:None noted at this time. Parent/Guardian/Caregiver to administer the medication(s). No social, environmental, functional or cognitive barriers are apparent. Patient is eligible for service through [facility]. Links to access additional resources [...] The patient has decided to use the [facility]. Follow-up: 1 month(s) Peggy Arvizu.D., R.Ph. documented in this encounter Plan of Treatment Upcoming Encounters Date Type Department Care Team (Late st Contact Info) Description 09/15/2024 2:00 PM CDT Telemedicine Division of Hematology in [place], [place] [address] [place] [address] Roger Mann M.D. [address] [place] [address] documented as of this encounter Visit Diagnoses Diagnosis 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)- Primary documented in this encounter Additional Health Concerns Infection Onset Date Last Indicated Resolved Time Protective Environment 07/15/2024 07/15/2024 documented as of this encounter
--- OUTSIDE RECORDS SUMMARY | 2024-09-03 12:38 | XMS_ITS | Encounter Summary ---
Author Organization [facility] Address [address] [place] [address] Care Team Providers Care Stoker Erector Name Role Phone Unavailable Primary Care Provider Unavailabl e Reason for Visit * Reason Onset Date Comments Specialty Pharmacy Delivery 07/30/2024 Encounter Details Date Type Department Care Team (Latest Contact Info) Description 07/30/2024 Clinical Communication [facility] [address] [place] [phone] Kaya Dolan C.Ph.T. [address] [place] [address] Specialty Pharmacy Delivery Social History Tobacco Use Types Packs/Day Years Used Date Smoking Tobacco: Never Smokeless Tobacco: Never Alcohol Use Standard Drinks/Week Comments Never 0 (1 standard drink = 0.6 oz pur e alcohol) [facility] Utilities Answer Date Recorded In [...] PM CDT Telemedicine Division of Hematology in [place], [place] [address] [place] [address] Roger Mann M.D. [address] [place] [address] documented as of this encounter Visit Diagnoses Not on filedocumented in this encounter Additional Health Concerns Infection Onset Date Last Indicated Resolved Time Protective Environment 07/15/2024 07/15/2024 documented as of this encounter
--- OUTSIDE RECORDS SUMMARY | 2024-09-03 12:39 | XMS_ITS | Encounter Summary ---
Author Organization [facility] Address [address] [place] [address] Care Team Providers Care Radioisotope Technician Name Role Phone Unavailable Primary Care Provider Unavailabl e Encounter Details Date Type Department Care Team (Latest Contact Info) Description 07/02/2024 Clinical Communication Department of Ophthalmology in [place], [place] [address] [place] [address] Provider, Unknown Social History Tobacco Use Types Packs/Day Years Used Date Smoking Tobacco: Never Smokeless Tobacco: Never [facility] Utilities Answer Date Recorded In the past 12 months has [employer], gas, oil, or water [employer] threatened to shut off services in your [...] your living situation today? I have a [facility] place to live 07/07/2024 Comments Unknown Sex [...] with you to send to our on-call Electrician [employer] to determine if we are able to [...] been going on? Unsure- MD CALLED ( [facility] hematology) called Symptoms are staying the [...] you followed by an eye doctor at [place]? NO Do you see anyone regularly for eye exams? Unsure What is the best phone number to reach you at? [phone] If our provider would like to see you, about how long would it take to get to [facility] [place] now. Request taken by Cora documented in this encounter Plan of Treatment Upcoming Encounters Date Type Department Care Team (Late st Contact Info) Description 09/15/2024 2:00 PM CDT Telemedicine Division of Hematology in [place], [place] [address] [place] [address] Roger Mann M.D. [address] [place] [address] documented as of this encounter Visit Diagnoses Not on filedocumented in this encounter Additional Health Concerns Infection Onset Date Last Indicated Resolved Time Protective Environment 07/15/2024 07/15/2024 documented as of this encounter
--- OUTSIDE RECORDS SUMMARY | 2024-09-03 12:39 | XMS_ITS | Encounter Summary ---
Author Organization [facility] Address [address] [place] [address] Care Team Providers Care Humanities Division Chair Name Role Phone Unavailable Primary Care Provider Unavailabl e Encounter Details Date Type Department Care Team (Late st Contact Info) Description 08/19/2024 Results Follow-Up Division of Hematology in [place], [place] [address] [place] [address] Loni Escamilla RSenaitNSenait [address] [place] [address] CBC with Differential, Blood Social History Tobacco Use Types Packs/Day Years Used Date Smoking Tobacco: Never Smokeless Tobacco: Never Alcohol Use Standard Drinks/Week Comments Never 0 (1 standard drink = 0.6 oz pur e alcohol) [facility] Utilities Answer Date Recorded In the past 12 months has e electric, gas, oil, or water [employer] threatened to shut off services in your [...] your living situation today? I have a [facility] place to live 07/07/2024 Comments No [...] PM CDT Telemedicine Division of Hematology in [place], [place] [address] [place] [address] Roger Mann M.D. [address] [place] [address] documented as of this encounter Visit Diagnoses Not on filedocumented in this encounter Additional Health Concerns Infection Onset Date Last Indicated Resolved Time Protective Environment 07/15/2024 07/15/2024 documented as of this encounter
== END 2024-09-01 07:44 | disposition home or self-care (01) ==
PROVIDERS: PCP Surgery; Visit Provider Emergency Medicine
DX: R07.89 Other chest pain (principal)
CPT/HCPCS: A0425; A0427

== ENCOUNTER 2024-09-01 08:17 | Emergency (ER) | payer MEDICARE, BC, SELFPAY ==
[2024-09-01] VITALS (20 sets, daily range): BP systolic 111–165; BP diastolic 67–109; PULSE 74–118; RESP 14–24; TEMP 36.7; O2SAT 89–97; BMI 22.5
--- OUTSIDE RECORDS SUMMARY | 2024-09-01 08:19 | XMS_ITS | Clinical Summary ---
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 For routine questions regarding patient records, call [phone] during business hours, M-F 8:00 AM - 5:00 PM Central Time. Record requests for emergency care only can be directed to [phone] at any time.[facility] Allergies No known active allergies Medications acetaminophen (TylenoL) 325 mg tablet Take 325-650 mg by mouth every 4 (four) hours as needed. 07/25/19 19 Active atenoloL (Tenormin) 25 mg tablet Take 1 tablet by mouth daily. 04/28/19 25 Active amLODIPine (Norvasc) 5 mg tablet Take 1 tablet by mouth daily. 04/28/19 [address] tablet Take 1 tablet by mouth daily. 03/24/19 15 Active zanubrutinib (Brukinsa) 80 mg capsuleIndications:Wa ldenstrom Macroglobulinemia Not Having Achieved Remission (HCC) Take 1 capsule (80 mg total) by mouth 2 (two) times a day. 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 CBC with Differential, Blood 08/18/2024 Orders Only Division of Hematology in [place], [place] [address] [place] [address] External, Ordering Provider, M.D. 07/30/2024 Specialty Pharmacy [facility] [id number] [place] [phone] Ching Shea, Pharm.D., R.Ph. 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 Specialty Pharmacy Delivery 07/30/2024 Specialty Pharmacy [facility] [address] [place] [phone] Elissa Frey, Pharm.D., R.Ph. 07/21/2024 Specialty Pharmacy [facility] [address] [phone] Manpreet Sagastume, Pharm.D., R.Ph. 07/20/2024 Orders Only Pharmacy [facility] [place] [phone] Camille Mc 07/17/2024 Orders Only Pharmacy [facility] [place] [phone] Camille Mc 07/15/2024 2:00 PM CDT Telemedicine Division of Hematology in [place], [place] [address] [place] [address] Heidy Fischer M.D. 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 07/06/2024 Clinical Communication Division of Hematology in [place], [place] [address] [place] [phone] Heidy Fischer M.D. Follow-up Orders 07/03/2024 10:00 AM CDT Comprehensive Visit Department of Ophthalmology in [place], [place] [address] [place] [phone] Destiny Pearce M.D. 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 07/03/2024 6:36 AM CDT - 07/03/2024 11:59 PM CDT Hospital Encounter Outpatient Procedure Center in [place], [place] [address] [place] [phone] Heidy Fischer M.D. Donnelly, Megan L, APRN, CRNA, D.N.P. 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) Discharge Disposition: Home or Self Care 07/02/2024 1:00 PM CDT Clinical Support - [facility] Division of Hematology in [address] [phone] Jane Morrow 07/02/2024 Clinical Communication Department of Ophthalmology in [address] [phone] Provider, Unknown 06/30/2024 8:45 AM CDT Clinical Communication Virtual Review in [place], [place] [address] [place] [address] Pre-visit Intake 06/16/2024 Clinical Communication [facility] [place], [place] [address] [place] [phone] Alexandre Benítez M.D. from Last 3 Months Social History Tobacco Use Types Packs/Day Years Used Date Smoking Tobacco: Never Smokeless Tobacco: Never Tobacco Cessation:Counseling Given: Not Answered Alcohol Use Standard Drinks/Week Comments Never 0 (1 standard drink = 0.6 oz pur e alcohol) [facility] Utilities Answer Date Recorded In the past 12 months has e electric, gas, oil, or water company threatened to shut off services in your home? No 07/07/2024 Hunger Vital Sign Answer Date Recorded Within the past 12 months, y ou worried that your food would run out before you got the money to buy more. Never true 07/08/19 25 Within the past 12 months, t he food you bought just didn't last and you didn't have money to get more. Never true 07/07/2024 PRAPARE - Transportation Answer Date Re corded In the past 12 months, has l ack of transportation kept you from medical appointments or from getting medications? No 06/10 In the past 12 months, has l ack of transportation kept you from meetings, work, or from getting things needed for daily living? No 07/07/2024 Housing Stability Answer Date Recorded What is your living situation today? I have a [facility] [employer] place to live 07/07/2024 Comments No Sex and Gender Information Value Date Recorded Sex Assigned at Female 07/07/2024 9:11 PM CDT Legal Sex Female 3:08 PM CDT Gender Identity Female 07/07/2024 9:11 PM CDT Sexual Orientation Straight 07/07/2024 9: 11 PM CDT Last Filed Vital Signs Vital Sign Reading Time Taken Comments Blood Pressure 142/65 07/03/2024 8:45 AM CDT Pulse 60 07/03/2024 8:55 AM CDT Temperature 36.8 C (98.2 F) 07/03/2024 6:58 AM CDT Respiratory Rate 15 07/03/2024 8:55 AM CDT Oxygen Saturation 96% 07/03/2024 8:55 AM CDT Inhaled Oxygen Concentration - - Weight 57 kg (125 lb 10.6 oz) 07/02/2024 12:53 P M CDT Height 163.8 cm (5' 4.49) 07/02/2024 12:53 PM C DT Body Mass Index 21.24 07/02/2024 12:53 PM CDT Plan of Treatment Upcoming Encounters Date Type Department Care Team (Late st Contact Info) Description 09/15/2024 2:00 PM CDT Telemedicine Division of Hematology in [place], [place] [address] [place] [address] Roger Mann M.D. [address] [place] [address] Health Maintenance Due Date Last Done Comments Zoster Vaccines (2 of 3) 09/28/2009 08/03/2009 RSV vaccine - (32-36 weeks) or 60+ years (1 - 1-dose 75+ series) 05/14/2010 DTaP,Tdap,and Td Vaccines (2 - Td or Tdap) 05/20/2021 05/21/2011, 12/27/2003 COVID-19 Vaccine ( season) 2023 01/03/2023, 01/02/2022, 06/28/2021, Additional history exists Depression Screening (Annual PHQ-2) 03/11/2024 Pneumococcal vaccine (50+ years) Completed 07/11/2015, 04/06/2008, 11/19/2002 Influenza Vaccine Completed 01/21/2024, , 12/01/2021, Additional history exists Fall Risk Screen (Annual) Completed 07/03/2024 IPV Vaccines Aged Out No longer eligi ble based on patient's age to complete this topic Procedures Procedure Name Priority Date/Time Associated Diagnosis Comments CBC WITH DIFFERENTIAL, B Routine 08/18/2024 9:[address] SKULL TO THIGH RAD - Routine (most inpatients and all outpatients) 07/13/2024 5:35 PM CDT 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) MR BRAIN WITHOUT AND WITH IV CONTRAST RAD - Routine (most inpatients and all outpatients) 07/13/2024 1:33 PM CDT 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) FUNDUS PHOTOS - OU - BOTH EYES Routine 07/13/2024 12:02 PM CDT 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) OPHTHALMOLOGY IMAGE EXAM Routine 07/13/2024 11:50 AM CDT LEUKEMIA/LYMPHOMA, PHENOTYPE, V Routine 07/03/2024 7:55 AM CDT LYMPHOMAPLASMACYTIC LYMPHOMA/WALDENSTROM MACROGLOBULINEMIA, MYD88 L265P WITH REFLEX TO CXCR4 Routine 07/03/2024 7:55 AM CDT CHROMOSOMES, HEMATOLOGIC, BM Routine 07/03/2024 7:55 AM CDT NC DX BONE MARROW BX & ASPIR Routine 07/03/2024 7:45 AM CDT 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) HEMATOPATHOLOGY Routine 07/03/2024 12:00 AM CDT VON WILLEBRAND DISEASE PROF Routine 07/02/2024 2:11 PM CDT 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) ACTIVATED PARTIAL THROMBOPLASTIN TIME (APTT), P Routine 07/02/2024 2:11 PM CDT 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) PROTHROMBIN TIME (PT), P Routine 07/02/2024 2:11 PM CDT 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) [id number] (BETA-2-M), S Routine 07/02/2024 2:11 PM CDT 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) IMMUNOGLOBULIN FREE LIGHT CHAINS, S Routine 07/02/2024 2:11 PM CDT 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) QUANTITATIVE M-PROTEIN STUDY, S Routine 07/02/2024 2:11 PM CDT 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) LACTATE DEHYDROGENASE (LD), S Routine 07/02/2024 2:11 PM CDT 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 EXT Leukocytes 6.3 3.8 - 10.8 Thousand/u L SCANNED REPORT EXT RBC 3.45(L) 3.80 - 5.10 Million/uL SCANNED REPORT EXT Hemoglobin 10.8(L) 11.7 - 15.5 g/dL SCANNED REPORT EXT Hematocrit 33.8(L) 35.0 - 45.0 % SCANNED REPORT EXT MCV 98.0 80.0 - 100.0 fL SCANNED REPORT EXT RDW 11.8 11.0 - 15.0 % SCANNED REPORT EXT Platelet Count 193 140 - 400 Thousand/u L SCANNED REPORT EXT Neutrophils 3,333 1,500 - 7,800 cells/uL SCANNED REPORT EXT Lymphocytes 2,211 850 - 3,900 cells/uL SCANNED REPORT EXT Monocytes 662 200 - 950 cells/uL SCANNED REPORT EXT Eosinophils 63 15 - 500 cells/uL SCANNED REPORT EXT Basophils 32 0 - 200 cells/uL SCANNED REPORT 08/18/2024 9:47 AM CDT Narrative SCANNED REPORT - 08/19/2024 8:23 AM CDT External results verified in Extract by Bruna Rangel on 08/19/2024 at 08:[address] Mann us Ordering Provider External M.DSenait LAB BLOOD ADD-ON Final Result SCANNED REPORT * PET CT Skull to Thigh FDG (07/13/2024 5:35 PM CDT) Anatomical Region Laterality Modality Body, Nuclear Medicine PET R ST LOS, PET ARZ LOS, Nuclear Medicine PET FLA LOS, Nuclear Medicine N/A Positron Emission Tomography (PET), Positron Emission Tomography (PET) Impressions 07/14/2024 9:38 AM CDT 1. No PET findings for focal FDG avid osseous or extraosseous myelomatous disease. 2. 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 Narrative 07/14/2024 9:38 AM CDT EXAM: PET CT SKULL TO THIGH FDG Serum glucose at time of F-18 FDG injection was 89 mg/dL. Patient followed standard dietary/fasting requirements for this exam. RADIOPHARMACEUTICAL/MEDS: Route: intravenous fludeoxyglucose F 18 injection CUSTODIAL (F-18 FDG),9.99 millicurie TECHNIQUE: F18 FDG PET/CT scan was performed from the vertex through the knees with low dose, non-contrast, free-breathing CT images for attenuation correction and anatomic localization (AC/AL), with imaging beginning at approximately 60 minutes after radiotracer injection. COMPARISON: None INDICATION: Recently diagnosed Waldenstrom's macroglobulinemia. Evaluate for FDG avid myelomatous lesions. Initial treatment strategy. FINDINGS: No abnormal foci of activity to suggest focal metabolically active osseous or extraosseous myelomatous disease. Diffuse increased marrow activity related to the recently diagnosed low-grade B- cell lymphoma with plasmacytic differentiation on recent bone marrow biopsy. Significant incidental findings on the low-dose unenhanced CT images: Cardiomegaly. Scattered fibrosis in the lung bases. Parapelvic left renal cysts. Small nonobstructing right renal calculus. Colonic diverticulosis. Hysterectomy. Advanced aortoiliac vascular calcifications. Procedure Note Jl Espinoza M.D. - 07/14/2024 EXAM: PET CT SKULL TO THIGH FDG Serum glucose at time of F-18 FDG injection was 89 mg/dL. Patient followedstandard dietary/fasting requirements for this exam. RADIOPHARMACEUTICAL/MEDS: Route: intravenous fludeoxyglucose F 18 injection CUSTODIAL (F-18 FDG),9.99 millicurie TECHNIQUE: F18 FDG PET/CT scan was performed from the vertex through theknees with low dose, non-contrast, free-breathing CT images forattenuation correction and anatomic localization (AC/AL), with imagingbeginning at approximately 60 minutes after radiotracer injection. COMPARISON: None INDICATION: Recently diagnosed Waldenstrom's macroglobulinemia. Evaluatefor FDG avid myelomatous lesions. Initial treatment strategy. FINDINGS: No abnormal foci of activity to suggest focal metabolicallyactive osseous or extraosseous myelomatous disease. Diffuse increased marrow activity related to the recently diagnosedlow-grade B- cell lymphoma with plasmacytic differentiation on recent bonemarrow biopsy. Significant incidental findings on the low-dose unenhanced CT images:Cardiomegaly. Scattered fibrosis in the lung bases. Parapelvic left renalcysts. Small nonobstructing right renal calculus. Colonic diverticulosis.Hysterectomy. Advanced aortoiliac vascular calcifications. IMPRESSION: 1. No PET findings for focal FDG avid osseous or extraosseous myelomatousdisease. 2. Diffuse increased marrow activity related to the diagnosed bjl-lebunD-kclu lymphoma with plasmacytic differentiation on recent bone marrowbiopsy. Heidy Fischer M.D. IMG NM PROCEDURES Final Re sult * MR Brain without and with IV Contrast (07/13/2024 1:33 PM CDT) Anatomical Region Laterality Modality Head, Brain, Neuroradiology RST LOS, Neuroradiology ARZ LOS, Neuroradiology FLA LOS N/A Magnetic Resonance Impressions 07/13/2024 2:33 PM CDT Nonspecific subtle diffuse dural and tentorial enhancement which may be physiologic. Moderate punctate to confluent nonenhancing T2 foci cerebral white matter most likely due to age related changes-small vessel ischemic disease. Mild-moderate diffuse cerebral and cerebellar atrophy. Fluid-partial opacification left more than right mastoid air cells. Remainder negative. Narrative 07/13/2024 2:33 PM CDT EXAM: MR BRAIN WITHOUT AND WITH IV CONTRAST COMPARISON: None. Procedure Note Alireza Anna M.D. - 07/13/2024 EXAM: MR BRAIN WITHOUT AND WITH IV CONTRAST COMPARISON: None. IMPRESSION: Nonspecific subtle diffuse dural and tentorial enhancement which may bephysiologic. Moderate punctate to confluent nonenhancing T2 foci cerebralwhite matter most likely due to age related changes-small vessel ischemicdisease. Mild-moderate diffuse cerebral and cerebellar atrophy. Fluid-partial opacification leftmore than right mastoid air cells. Remainder negative. Heidy Fischer M.D. IMG MRI PROCEDURES Final R esult * Fundus Photos - OU - Both Eyes (07/13/2024 12:02 PM CDT) Narrative OPHTHALMOLOGY IMAGING EXAM - 07/31/2024 8:48 PM CDT Right Eye Field of view is standard, ultra-wide view. Fundus photo type obtained is Color. Left Eye Field of view is standard, ultra-wide view. Fundus photo type obtained is Color, Autofluorescence. Notes Correlate with exam Destiny Pearce M.D. OPHTH PHOTOGRAPHY Rachel hood Result OPHTHALMOLOGY IMAGING EXAM * Generic Eye Procedure 200 R-Ophthalmology Image Exam (07/13/2024 11:50 AM CDT) 07/13/2024 11:4 9 AM CDT Narrative IIMS - 07/13/2024 12:09 PM CDT This order has been created and auto-finalized to support the import of images acquired without order. The clinical documentation to support these images can be found on the encounter that produced images. us Provider Not In System IMG NON RAD IMAGING PROCE JEAN Final Result IIMS NA * Reflex Testing of MYD88 and CXCR4 (07/03/2024 7:55 AM CDT) Specimen Bone marrow 07/10/2024 3:23 PM CDT DTL LPLFX Reflex Result see interpretation 07/10/2024 3:23 PM CDT DTL Final Diagnosis These results are considered ancillary findings and require complete integration with the current pathology case [id number] for final interpretation. The result should NOT be interpreted in isolation for the purposes of diagnosis or clinical management. 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 Comment: The MYD88 L265P abnormality is highly associated (>90%) with the pathologic diagnosis of lymphoplasmacytic lymphoma and the clinical syndrome of Waldenstrom macroglobulinemia (LPL/WM), particularly in the setting of an elevated IgM serum monoclonal paraprotein. A positive molecular result therefore supports the possibility of LPL/WM; however, this mutation has also been reported in other B-cell neoplasms, including IgM monoclonal gammopathy of uncertain significance, a small subset of marginal zone lymphomas (approximately 10%). The MYD88 L265P mutation is also identified in some diffuse large B-cell lymphomas (DLBCL), with a higher prevalence observed in immune privileged sites (e.g. central nervous system, testis, breast, skin). Clinical, laboratory and pathologic correlation is required for final diagnosis and interpretation of these results. The analytical sensitivity of this assay is approximately 1% mutation detection in a wild type background. Method Summary: DNA was extracted from the specimen and subjected to allele-specific polymerase chain reaction (PCR) using an allele specific forward primer that distinguishes the presence of the MYD88 L265P mutation. The reaction also contains a wild-type forward 5' of the mutation site and a single reverse primer. Expected fragment lengths of PCR products are interpreted using capillary electrophoresis. Bone marrow, CXCR4 Mutation Analysis: Negative. No pathogenic variant is detected in the region tested in CXCR4. Comment: A negative result does not exclude the presence of a hematologic neoplasm. In lymphoplasmacytic lymphoma/Waldenstro m's macroglobulinemia (LPL/WM), WHIM-like somatic mutations (C-terminus nonsense/frameshift mutations) of CXCR4 have been reported in approximately 30% of cases, commonly coexisting with a MYD88 L265P mutation. A LSK82-X253V/CXCR4-W T (wild type) molecular signature is associated with similar overall survival, higher response to ibrutinib in previously treated patients, more adenopathy, and similar or lower bone marrow disease burden and serum IgM levels in comparison to those with co-occurring KUQ90-V430M/CXCR4-W HIM mutations. In contrast, rare cases of apparent LPL with FLQ09-SX/CXCR4-WT molecular signature have demonstrated inferior overall survival, lower response to ibrutinib therapy in previously treated patients, and lower bone marrow disease burden and serum IgM levels in comparison to those harboring a MYD88 L265P mutation (Angelon et al., 2014, [id number]; 2015, [id number]; Zoey et al., 2016, [id number]). Interpretation of the result in the context of all available clinical laboratory and morphologic information is recommended. Method Summary: The C-terminus end of CXCR4 ([id number], c.[id number]) is amplified from extracted genomic DNA by polymerase chain reaction (PCR), followed by [place] sequencing and capillary electrophoresis analysis. Review of the sequence data is performed using a combination of automated calls and manual inspection (Unpublished Page method). The hotspot mutation c.1013 C>A/G (p.S338*) is examined using bridged nucleic acid (BNA) clamping-enhanced [place] sequencing with an analytic sensitivity of 1%. All other genetic variants in the test region are examined by regular [place] sequencing with the analytic sensitivity of 15-20%. Signing Pathologist: Neda Saleem M.D. 07/10/2024 3:23 PM CDT DTL Comment: ----ADDITIONAL INFORMATION---- This test was developed and its performance characteristics determined by [facility] in a manner consistent with CLIA requirements. This test has not been cleared or approved by the U.S. Food and Drug Administration. 07/03/2024 7:55 AM CDT 07/03/2024 10:50 AM CDT us Roger Mann M.D. LAB GENETIC TESTING Fin al Result [facility] [address] [place] [address], [facility] DTL [address] [facility] [address] [place] [address] * Leukemia/Lymphoma Immunophenotyping by Flow Cytometry (07/03/2024 7:55 AM CDT) LCMS Result Performed 07/06/2024 8:55 AM CDT DTL Specimen Source Bone marrow 07/06/2024 8:55 AM CDT DTL Final Diagnosis: These results are considered ancillary findings and require complete integration with the current pathology case [id number] for final interpretation. The result should NOT be interpreted in isolation for the purposes of diagnosis or clinical management. Bone marrow, flow cytometric immunophenotyping : Low-grade B-cell lymphoma, lambda light chain restricted. Reviewed by: Kenny Sutton M.D., Ph.D. 07/06/2024 8:55 AM CDT DTL Special Studies: %Lymphs: 38% Results: Blasts: Not increased by CD45/side scatter and CD34. B-cells: Monotypic lambda Express: CD19, CD20, CD22, CD38, CD200. Do not express: CD5, CD10, CD23, CD11c, CD103. Estimated size: 17% gated lymphoid events; 5% total analyzed events B-cell markers tested: Triage panel: CD10, CD19, CD45 and kappa and lambda immunoglobulin light chains. B-cell panel: CD5, CD11c, CD19, CD20, CD22, CD23, CD38, CD45, CD103, CD200 and kappa and lambda immunoglobulin light chains. T-cells/NK-cells: No aberrant phenotype by CD3 and CD16. Plasma cells: No monotypic; normal expression pattern of CD19, CD38, CD45, CD138, and cytoplasmic kappa and lambda. Quality assessment: Specimen received within validated guidelines. 07/06/2024 8:55 AM CDT DTL Microscopic Description Consult case. Slide review not performed by flow technologist. 07/06/2024 8:55 AM CDT DTL Comment: ----ADDITIONAL INFORMATION---- This test was developed using an analyte specific reagent. Its performance characteristics were determined by [facility] in a manner consistent with CLIA requirements. This test has not been cleared or approved by the U.S. Food and Drug Administration. 07/03/2024 7:55 AM CDT 07/03/2024 10:46 AM CDT us Roger Mann M.D. LAB GENETIC TESTING Fin al Result [facility] [address] [place] [address], [facility] DTL 200 [facility] [address] [place] [address] * Chromosome Analysis, Hematologic Disorders, Bone Marrow (07/03/2024 7:55 AM CDT) Pathologist [facility] Result Summary Normal 07/13/2024 8:36 AM CDT DTL Karyotype 46,XX[20] 07/13/2024 8:36 AM CDT DTL Reason for referral anemia 07/13/2024 8:36 AM CDT DTL Specimen Bone Marrow 07/13/2024 8:36 AM CDT DTL Method Culture without mitogens 07/13/2024 8:36 AM CDT DTL Banding Method Band Resolution: <400 Stain Name Cells Analyzed Cells Karyograms Counted Prepared GTL 20 0 2 Total 20 0 2 Real to Stain Name: GTL=G-banding; QFQ=Q-banding; DAPI=DAPI-stain ing; CBL=C-banding; AGNOR=Silver-st aining; NON=Non-banded The sum of Cells Analyzed and Cells Counted equals the total cells examined. 07/13/2024 8:36 AM CDT DTL Additional Information A portion of the testing process was performed at [facility] site [id number], [id number]. 07/13/2024 8:36 AM CDT DTL Released by Nancy Elliott M.D. 07/13/2024 8:36 AM CDT DTL Interpretation No clonal abnormality was apparent. This test was ordered in the context of a [facility] pathology consultation/ca se (#[id number]), and this result should be interpreted within the context of the pathology consultation/re port. 07/13/2024 8:36 AM CDT DTL Bone Marrow 07/03/2024 7:55 AM CDT 07/03/2024 11:13 AM CDT us Roger Mann M.D. LAB GENETIC TESTING Fin al Result [facility] [address] [place] [address], [facility] DTL [address] [place] [address] * NC DX BONE MARROW BX & ASPIR (07/03/2024 7:45 AM CDT) Bone Marrow Narrative [facility] - 07/03/2024 7:45 AM CDT Tonio Grey R.N. 07/03/2024 7:58 AM Biopsy Bone Marrow, Sedated Performed by: Tonio Grey R.N. Authorized by: Heidy Fischer M.D. Care team members present 1. Tonio Grey R.N. 2. Stephanie Fry MLS(ASCP) PROCEDURE DETAILS Procedure: Bone Marrow biopsy and Bone Marrow aspiration Bone marrow biopsy Laterality: Right Location of biopsy: Posterior iliac crest Patient position: Side lying Intra-procedure monitoring: Blood pressure monitoring, continuous pulse oximetry, heart rate and respirations Type of Needle: Manual bone marrow biopsy needle Findings: Slides obtained, aspirate obtained with spicules noted and fluid obtained Bone marrow aspiration Aspirate volume (mL): 20 CONSENT Consent obtained: written (Risks, benefits and alternatives were discussed and a written Informed Consent was obtained. Please see Informed Consent form for further details.) UNIVERSAL PROTOCOL All relevant documentation and testing were reviewed and available. All required blood products, implants, devices and or special equipment were made available as applicable. Pre-procedure verification was conducted and the correct site was marked if required. A fire risk and smoke assessment were done as applicable. The procedural time-out to verify correct patient, correct side/site, and procedure was conducted prior to performing the procedure and confirmed in a procedural pause. PRE-PROCEDURE DETAILS Appropriate hand hygiene, gown, cap, mask, protective eyewear, sterile gloves, skin preparation, sterile drape, and strict aseptic technique were utilized as applicable for the procedure.: yes Site preparation: chlorhexidine SEDATION / ANESTHESIA Anesthesia method: local infiltration and anesthesia Local infiltrate type: lidocaine POST-PROCEDURE DETAILS Procedure completed successfully: yes Complications: no apparent complications Post-procedure instructions: Post-procedure activity instructions provided COMMENTS 100 mg 1 % lidocaine administered SQ Pressure dressing applied us Heidy Fischer M.D. PROCEDURE/MINOR SURGICAL O RDERABLES Final Result [facility] NA * Hematopathology (07/03/2024 12:00 AM CDT) 07/06/2024 9:12 AM [facility] Report electronically signed by Kenny Sutton M.D., Ph.D. I verify that I have examined all relevant slides/materials for the specimen(s) and rendered or confirmed the diagnosis. 07/06/2024 9:12 AM [facility] Gross Description B: Core biopsy specimens were received in B5 and were subsequently placed in formalin. Received in formalin labeled with the patient's name, medical record number, and bone marrow biopsy is a pale moreno-brown bone marrow core, 0.3 cm in average diameter and 1.4 cm in length. The specimen is submitted en toto in cassette B1. The specimen was decalcified prior to processing. Grossed by OER. C: Received in formalin labeled with the patient's name, medical record number, and bone marrow clot is a 2.0 x 1.4 x 0.3 cm aggregateof dark red bone marrow clot material. The specimen is submitted en toto in cassette C1. Grossed by OER. 07/06/2024 9:12 AM [facility] Addendum ADDENDUM Cytogenetic analysis, bone marrow ([id number], 07/03/2024): 46,XX[20] No clonal abnormality was apparent. See cytogenetics report for complete details. 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 Comment: The MYD88 L265P abnormality is highly associated (>90%) with the pathologic diagnosis of lymphoplasmacytic lymphoma and the clinical syndrome of Waldenstrom macroglobulinemia (LPL/WM), particularly in the setting of an elevated IgM serum monoclonal paraprotein. A positive molecular result therefore supports the possibility of LPL/WM; however, this mutation has also been reported in other B-cell neoplasms, including IgM monoclonal gammopathy of uncertain significance, a small subset of marginal zone lymphomas (approximately 10%). The MYD88 L265P mutation is also identified in some diffuse large B-cell lymphomas (DLBCL), with a higher prevalence observed in immune privileged sites (e.g. central nervous system, testis, breast, skin). Clinical, laboratory and pathologic correlation is required for final diagnosis and interpretation of these results. The analytical sensitivity of this assay is approximately 1% mutation detection in a wild type background. Method Summary: DNA was extracted from the specimen and subjected to allele-specific polymerase chain reaction (PCR) using an allele specific forward primer that distinguishes the presence of the MYD88 L265P mutation. The reaction also contains a wild-type forward 5' of the mutation site and a single reverse primer. Expected fragment lengths of PCR products are interpreted using capillary electrophoresis. Bone marrow, CXCR4 Mutation Analysis: Negative. No pathogenic variant is detected in the region tested in CXCR4. Comment: A negative result does not exclude the presence of a hematologic neoplasm. In lymphoplasmacytic lymphoma/Waldenstrom 's macroglobulinemia (LPL/WM), WHIM-like somatic mutations (C-terminus nonsense/frameshift mutations) of CXCR4 have been reported in approximately 30% of cases, commonly coexisting with a MYD88 L265P mutation. A [id number]-A620O/CXCR4-WT (wild type) molecular signature is associated with similar overall survival, higher response to ibrutinib in previously treated patients, more adenopathy, and similar or lower bone marrow disease burden and serum IgM levels in comparison to those with co-occurring SMS39-P555L/CXCR4-WH IM mutations. In contrast, rare cases of apparent LPL with ATS76-NZ/CXCR4-WT molecular signature have demonstrated inferior overall survival, lower response to ibrutinib therapy in previously treated patients, and lower bone marrow disease burden and serum IgM levels in comparison to those harboring a MYD88 L265P mutation (Angelon et al., 2014, [id number]; 2015, [id number]; Zoey et al., 2016, [id number]). Interpretation of the result in the context of all available clinical laboratory and morphologic information is recommended. Method Summary: The C-terminus end of CXCR4 ([id number], c.118-6332) is amplified from extracted genomic DNA by polymerase chain reaction (PCR), followed by [place] sequencing and capillary electrophoresis analysis. Review of the sequence data is performed using a combination of automated calls and manual inspection (Unpublished Page method). The hotspot mutation c.1013 C>A/G (p.S338*) is examined using bridged nucleic acid (BNA) clamping-enhanced [place] sequencing with an analytic sensitivity of 1%. All other genetic variants in the test region are examined by regular [place] sequencing with the analytic sensitivity of 15-20%. See molecular report for complete details. Molecular Hematopathology studies interpreted by Neda Saleem M.D. Signed by Kenny Sutton M.D., Ph.D. 07/13/2024 3:04 PM 07/13/2024 3:04 PM T [facility] Comment:REVISED RESULTS Interpretation FINAL DIAGNOSIS Peripheral blood, bone marrow aspirate and biopsy, iliac crest: 1. 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 2. Hypercellular bone marrow with morphologically normal trilineage hematopoiesis. COMMENT: Differential diagnosis includes lymphoplasmacytic lymphoma and marginal zone lymphoma, with the former favored based on the morphologic features. Correlation with the pending molecular and clinical findings is required. MICROSCOPIC DESCRIPTION Peripheral Blood: CBC - 07/02/2024 2:10:00 PM HGB 11.1 g/dL; RBC 3.61 x10(12)/L; MCV 99.7 fL; RDW 12.1 %; WBC 9.8 x10(9)/L; PLT 282 x10(9)/L Cell % of Total Cells NEUTROPHILS 63 LYMPHOCYTES 30 MONOCYTES 4 EOSINOPHILS 0 BASOPHILS 3 METAMYELOCYTES 0 MYELOCYTES 0 PROMYELOCYTES 0 BLASTS 0 OTHER CELLS 0 NRBC 0 Total Cells: 100 Peripheral Smear: Rouleaux. Bone Marrow Aspirate/Touch Imprint/Biopsy: Aspirate quality: Cellular. Biopsy quality: Adequate. M:E ratio: Normal. Cellularity: Hypercellular, 80%. Erythroid precursors: Normal quantity. Normal morphology. Myeloid precursors: Increased quantity. Normal morphology. Blasts not increased. Megakaryocytes: Normal quantity. Normal morphology and distribution. Lymphocytes/plasma cells: Abnormal nodular and interstitial infiltrates of small to intermediate-sized cells present, including lymphocytes, lymphoplasmacytoid forms and plasma cells, 60% of the total marrow cellularity. Kd Bodies are present. Other: Increased mast cells are present with unremarkable morphology. ANCILLARY STUDIES Iron stain, bone marrow aspirate unit and touch prep: Normal storage iron; sideroblasts present; ring sideroblasts absent. Flow cytometric immunophenotyping, bone marrow: Blasts: Not increased by CD45/side scatter and CD34. B-cells: Monotypic lambda Express: CD19, CD20, CD22, CD38, CD200. Do not express: CD5, CD10, CD23, CD11c, CD103. Estimated size: 17% gated lymphoid events; 5% total analyzed events B-cell markers tested: Triage panel: CD10, CD19, CD45 and kappa and lambda immunoglobulin light chains. B-cell panel: CD5, CD11c, CD19, CD20, CD22, CD23, CD38, CD45, CD103, CD200 and kappa and lambda immunoglobulin light chains. T-cells/NK-cells: No aberrant phenotype by CD3 and CD16. Plasma cells: No monotypic; normal expression pattern of CD19, CD38, CD45, CD138, and cytoplasmic kappa and lambda. Cytogenetic analysis, bone marrow aspirate: Sample has been forwarded for testing and results will be reported in an addendum. Molecular analysis for LPL/WM reflex (MYD88 L265P to CXCR4), bone marrow aspirate: Sample has been forwarded for testing. Results will be reported in an addendum. Molecular analysis for MYD88, bone marrow aspirate: Test not indicated per Hematopathology review. Sample will be saved for 1 week. 07/13/2024 3:04 PM CDT [facility] 07/03/2024 07/03/2024 5:3 1 AM CDT Roger Mann M.D. LAB SURG PATH ORDERABLE S Edited Result - Final [facility] [address] [place] [address], [facility] [address] [place] [address] * (ABNORMAL) Quantitative M-protein Study (07/02/2024 2:11 PM CDT) Immunoglobulin A (IgA), S 32(L) 61 - 356 mg/dL 9:48 AM CDT [facility] Immunoglobulin M (IgM), S 4020(H) 37 - 286 mg/dL 5 10:26 AM CDT [facility] Immunoglobulin G (IgG), S 606(L) 767 - 1590 mg/dL 9:48 AM CDT [facility] Therapeutic Antibody Administered? Unspecified 6:28 AM CDT [facility] M-protein ML 3.616(H) g/dL 3:23 PM CDT [facility] Flag, M-protein Isotype Positive(A) Negative 3:23 PM CDT [facility] QMPTS Interpretation IgM lambda 3.616 g/dL C/W MGUS, macroglobulinemia or lymphoproliferativ e disease, amyloidosis, etc. Suggest Monoclonal Protein Studies, 24 Hour, Urine. 3:23 PM CDT [facility] Comment: ----ADDITIONAL INFORMATION---- The submitted sample was assayed by five separate immunopurifications for IgG, IgA, IgM, kappa and lambda. The result reflects the findings of either no monoclonal protein detected or those monoclonal immunoglobulins that were detected. This test was developed and its performance characteristics determined by [facility] in a manner consistent with CLIA requirements. This test has not been cleared or approved by the U.S. Food and Drug Administration. Blood (Blood, Venous) 07/02/2024 2:11 PM CDT 07/03/2024 6:35 AM CDT [facility] - 07/03/2024 3:23 PM CDT Specimen Information: Specimen ID: [id number] Specimen Type: Blood Specimen Collection Start Date: 07/02/2024 2:11 PM Specimen Received Date: 07/03/2024 6:35 AM Specimen ID: [id number] Specimen Type: Blood Specimen Collection Start Date: 07/02/2024 2:11 PM Specimen Received Date: 07/03/2024 6:28 AM Heidy Fischer M.D. LAB BLOOD ADD-ON Final Res ult [facility] [address] [place], [place] [id number] [place] [address] [place] [address] [place] [address] [place] [address] [place] [address] * (ABNORMAL) Immunoglobulin Free Light Chains (07/02/2024 2:11 PM CDT) Pathologist [facility] [place] Free Light Chain, S 0.6900 0.3300 - 1.94 mg/dL 07/03/2024 10:38 AM CDT [facility] Lambda Free Light Chain, S 16.1(H) 0.5700 - 2.63 mg/dL 07/03/2024 10:54 AM CDT [facility] [place]/Lambda FLC Ratio 0.0429(L) 0.2600 - 1.65 07/03/2024 10:54 AM CDT [facility] Blood (Blood, Venous) 07/02/2024 2:11 PM CDT 07/03/2024 6:36 AM CDT us Heidy Fischer M.D. LAB BLOOD ADD-ON Final Res ult [facility] [address] [place] [address] [facility] [address] [place] [address] * von Willebrand Disease Profile (07/02/2024 2:11 PM CDT) [facility] von Willebrand Disease Tech Inter SEE COMMENT 07/03/2024 10:16 AM CDT DTL Comment: IMPRESSION: No laboratory evidence of von Willebrand disease (VWD). COMMENTS: Normal or elevated factor VIII coagulant activity and/or von Willebrand factor (VWF) antigen and/or VWF activity [latex immunoassay] provide no evidence for von Willebrand disease (VWD). NOTE: VWF antigen and/or VWF latex immunoassay activity and/or factor VIII may be increased above baseline levels by acute or chronic inflammation, stress or adrenergic stimuli, or estrogen and oral contraceptive (OCP) therapy, liver disease or recent infusion of plasma, cryoprecipitate, desmopressin (DDAVP) or VWF concentrates and mask the diagnosis of mild von Willebrand disease (VWD). Note: Apparently normal individuals of blood group O may have somewhat lower factor VIII and von Willebrand factor (VWF) than individuals of other blood groups, such that (for example) those of group O may have VWF antigen as low as 40-50%, whereas normals of nongroup O generally have VWF antigen above 60-70%. Suggest clinical correlation. Coag Factor VIII Activity Assay, P 93 55 - 200 % 07/02/2024 3:17 PM CDT DTL Comment: ----ADDITIONAL INFORMATION---- This test has been modified from the yard goods salesperson's instructions. Its performance characteristics were determined by [facility] in a manner consistent with CLIA requirements. This test has not been cleared or approved by the U.S. Food and Drug Administration. von Willebrand Factor Ag, P 66 55 - 200 % 07/03/2024 10:01 AM CDT DTL Comment: ----ADDITIONAL INFORMATION---- This test has been modified from the yard goods salesperson's instructions. Its performance characteristics were determined by [facility] in a manner consistent with CLIA requirements. This test has not been cleared or approved by the U.S. Food and Drug Administration. von Willebrand Factor Activity, P 58 55 - 200 % 07/03/2024 10:16 AM CDT DT Comment: ----ADDITIONAL INFORMATION---- This test has been modified from the yard goods salesperson's instructions. Its performance characteristics were determined by [facility] in a manner consistent with CLIA requirements. This test has not been cleared or approved by the U.S. Food and Drug Administration. Blood (Blood, Venous) 07/02/2024 2:11 PM CDT 07/02/2024 2:37 PM CDT Narrative [facility] - 07/03/2024 10:16 AM CDT Specimen Information: Specimen ID: [id number] Specimen Type: Blood Specimen Collection Start Date: 07/02/2024 2:11 PM Specimen Received Date: 07/02/2024 2:37 PM Specimen ID: [id number] Specimen Type: Blood Specimen Collection Start Date: 07/02/2024 2:11 PM Specimen Received Date: 07/02/2024 2:37 PM Specimen ID: [id number] Specimen Type: Blood Specimen Collection Start Date: 07/02/2024 2:11 PM Specimen Received Date: 07/02/2024 2:37 PM Heidy Fischer M.D. LAB BLOOD ADD-ON Final Res ult [facility] [address] [place] [address], [facility] [address] [place] [address] * APTT (Activated Partial Thromboplastin Time) (07/02/2024 2:11 PM CDT) Pathologist [facility] Activated Partial Thrombopl Time, P 34 25 - 37 sec 07/02/2024 3:06 PM CDT DTL Blood (Blood, Venous) 07/02/2024 2:11 PM CDT 07/02/2024 2:32 PM CDT us Heidy Fischer M.D. LAB BLOOD ADD-ON Final Res ult Performing Organization Address City/[facility]/ZIP Co de Phone Number [facility] [address] [place] [address], [facility] [address] [place] [address] * Prothrombin Time (PT) (07/02/2024 2:11 PM CDT) Prothrombin Time, P 12.3 9.4 - 12.5 sec 07/02/2024 3:06 PM CDT DTL INR 1.1 0.9 - 1.1 07/02/2024 3:06 PM CDT DTL Comment: ----ADDITIONAL INFORMATION---- Standard intensity warfarin therapeutic range: 2.0 to 3.0 High intensity warfarin therapeutic range: 2.5 to 3.5 Blood (Blood, Venous) 07/02/2024 2:11 PM CDT 07/02/2024 2:32 PM CDT us Heidy Fischer M.D. LAB BLOOD ADD-ON Final Res ult Performing Organization Address [facility] Co de Phone Number [facility] [address] [place] [address], [facility] [address] [place] [address] * LD (Lactate Dehydrogenase) (07/02/2024 2:11 PM CDT) Lactate Dehydrogenase (LD), S 130 122 - 222 U/L 07/02/2024 3:17 PM CDT DTL Blood (Blood, Venous) 07/02/2024 2:11 PM CDT 07/02/2024 2:46 PM CDT us Heidy Fischer M.D. LAB BLOOD NON ADD-ON Final Result Performing Organization Address City/[facility] Co de Phone Number [facility] [address] [place] [address], [facility] DTL [facility] [address] [place] [address] * (ABNORMAL) Kexs-4-Atbubticvbsqk (Beta-2-M) (07/02/2024 2:11 PM CDT) Pathologist [facility] Zvmi-4-Lxvwspu obulin, S 4.94(H) 1.21 - 2.70 mcg/mL 07/03/2024 10:18 AM CDT [facility] Blood (Blood, Venous) 07/02/2024 2:11 PM CDT 07/03/2024 6:35 AM CDT us Heidy Fischer M.D. LAB BLOOD ADD-ON Final Res ult [facility] [address] [place] [address] [facility] [address] [place] [address] * (ABNORMAL) Comprehensive Metabolic Panel (07/02/2024 2:11 PM CDT) Pathologist [facility] Potassium, S 4.8 3.6 - 5.2 mmol/L 07/02/2024 3:17 PM CDT DTL Sodium, S 141 135 - 145 mmol/L 07/02/2024 3:17 PM CDT DTL Chloride, S 102 98 - 107 mmol/L 07/02/2024 3:17 PM CDT DTL Bicarbonate, S 28 22 - 29 mmol/L 07/02/2024 3:17 PM CDT DTL Anion Gap 11 7 - 15 07/02/2024 3:17 PM CDT DTL BUN (Blood Urea Nitrogen), S 20 6 - 21 mg/dL 07/02/2024 3:17 PM CDT DTL Creatinine 1.15(H) 0.59 - 1.04 mg/dL 07/02/2024 3:17 PM CDT DTL Estimated GFR (eGFR) 46(L) >=60 mL/min/BS A 07/02/2024 3:17 PM CDT DTL Comment: Estimated GFR calculated using the 2020 CKD_EPI creatinine equation. Calcium, Total, S 9.4 8.8 - 10.2 mg/dL 07/02/2024 3:17 PM CDT DTL Glucose, S 92 70 - 140 mg/dL 07/02/2024 3:17 PM CDT DTL Protein, Total, S 8.8(H) 6.3 - 7.9 g/dL 07/02/2024 3:17 PM CDT DTL Albumin, S 3.6 3.5 - 5.0 g/dL 07/02/2024 3:17 PM CDT DTL Aspartate Aminotransferase (AST), S 19 8 - 43 U/L 07/02/2024 3:17 PM CDT DTL Alkaline Phosphatase, S 78 35 - 104 U/L 07/02/2024 3:17 PM CDT DTL Alanine Aminotransferase (ALT), S 15 7 - 45 U/L 07/02/2024 3:17 PM CDT DTL Bilirubin, Total, S 0.5 0.0 - 1.2 mg/dL 07/02/2024 3:17 PM CDT DTL Blood (Blood, Venous) 07/02/2024 2:11 PM CDT 07/02/2024 2:46 PM CDT Heidy Fischer M.D. LAB BLOOD [place] [address], [place] [address] * (ABNORMAL) Viscosity (07/02/2024 2:10 PM CDT) Viscosity, S 1.9(H) <=1.5 cpoise 07/06/2024 12:44 PM CDT [facility] Comment: Suggest QMPSS. ----ADDITIONAL INFORMATION---- This test has been modified from the yard goods salesperson's instructions. Its performance characteristics were determined by [facility] in a manner consistent with CLIA requirements. This test has not been cleared or approved by the U.S. Food and Drug Administration. Blood (Blood, Venous) 07/02/2024 2:10 PM CDT 07/03/2024 8:11 AM CDT Heidy Fischer M.D. LAB BLOOD NON ADD-ON Final Result [facility] [address] [place] [address] [facility] [address] [place] [address] from Last 3 Months Additional Health Concerns Infection Onset Date Last Indicated Protective Environment 07/15/2024 Insurance MEDICARE [facility]
--- OUTSIDE RECORDS SUMMARY | 2024-09-01 08:19 | XMS_ITS | Encounter Summary ---
Author Organization [facility] Address [address] [place] [address] Care Team Providers Care Loading Dock Helper Name Role Phone Unavailable Primary Care Provider Unavailabl e Encounter Details Date Type Department Care Team (Late st Contact Info) Description 07/17/2024 Orders Only Pharmacy Prior Auth [place] [phone] Camille Mc [address] [place] [address] Social History Tobacco Use Types Packs/Day Years Used Date Smoking Tobacco: Never Smokeless Tobacco: Never Alcohol Use Standard Drinks/Week Comments Never 0 (1 standard drink = 0.6 oz pur e alcohol) [facility] Utilities Answer Date Recorded In the past [...] your living situation today? I have a [facility] place to live 07/07/2024 Comments No Sex and Gender Information Value Date Recorded Sex Assigned at Female 07/07/2024 9:11 PM CDT Legal Sex Female 3:08 PM CDT Gender Identity Female 07/07/2024 9:11 PM CDT Sexual Orientation Straight 07/07/2024 9: 11 PM CDT documented as of this encounter Plan of Treatment Upcoming Encounters Date Type Department Care Team (Late st Contact Info) Description 09/15/2024 2:00 PM CDT Telemedicine Division of Hematology in [place], [place] [address] [place] [address] Roger Mann M.D. [address] [place] [address] documented as of this encounter Visit Diagnoses Not on filedocumented in this encounter Additional Health Concerns Infection Onset Date Last Indicated Resolved Time Protective Environment 07/15/2024 07/15/2024 documented as of this encounter
--- OUTSIDE RECORDS SUMMARY | 2024-09-01 08:19 | XMS_ITS | Encounter Summary ---
Author Organization [facility] Address [address] [place] [address] Care Team Providers Care Air Pollution Analyst Name Role Phone Unavailable Primary Care Provider Unavailabl e Encounter Details Date Type Department Care Team (Latest Contact Info) Description 07/02/2024 Clinical Communication Department of Ophthalmology in [place], [place] [address] [place] [address] Provider, Unknown Social History Tobacco Use Types Packs/Day Years Used Date Smoking Tobacco: Never Smokeless Tobacco: Never [facility] Utilities Answer Date Recorded In the past 12 months has [facility] electric, gas, oil, or water [employer] threatened to shut off services in your [...] your living situation today? I have a [facility] place to live 07/07/2024 Comments Unknown Sex and Gender Information Value Date Recorded Sex Assigned at Female 07/07/2024 9:11 PM CDT Legal Sex Female 3:08 PM CDT Gender Identity Female 07/07/2024 9:11 PM CDT Sexual Orientation Straight 07/07/2024 9: 11 PM CDT documented as of this encounter Miscellaneous Notes * Telephone Encounter - Cora Kent - 07/02/2024 3:16 PM CDT ???We are considered an Urgent Eye Care clinic, we do see patients based on urgencies. There are a few questions we will go through with you to send to our on-call [place] to determine if we are able to offer you a more urgent appointment. Typically, it would be a same day or next day appointment. If our providers do not think it is necessary for you to be seen, you may be given medical advice. Regardless of the outcome, you should expect a call back from us within the next hour to let you know what our provider has considered.?? Which eye is bothering you? BOTH Have you had eye surgery in the past 90 days (with who and when)? NO Please describe all of the concerns/symptoms you are experiencing? Blurred vision, New health dx - Waldenstrom macroglobulinemia, dizziness How long have these symptoms been going on? Unsure- MD CALLED ( [facility]) called Symptoms are staying the same, getting better, getting worse? Staying the same Have you noticed any changes in your vision? Blurred Are you currently having any pain with your eye(s)? (If so, on a scale of 1-10, 10 being the worst,what would you rate your pain)? NO Do you wear contact lens? NO Is there anything you have tried to do to help your eyes (warm/cold compress, irrigation, artificial tears, etc)? NO Are you followed by an eye doctor at [place]? NO Do you see anyone regularly for eye exams? Unsure What is the best phone number to reach you at? [phone] If our provider would like to see you, about how long would it take to get to [facility]?At [place] now. Request taken by Cora documented in this encounter Plan of Treatment Upcoming Encounters Date Type Department Care Team (Late st Contact Info) Description 09/15/2024 2:00 PM CDT Telemedicine Division of Hematology in [place], [place] [address] [place] [address] Roger Mann M.D. [address] [place] [address] documented as of this encounter Visit Diagnoses Not on filedocumented in this encounter Additional Health Concerns Infection Onset Date Last Indicated Resolved Time Protective Environment 07/15/2024 07/15/2024 documented as of this encounter
--- OUTSIDE RECORDS SUMMARY | 2024-09-01 08:19 | XMS_ITS | Clinical Summary ---
Author Organization [facility] Address [address] [place] [address] Care Team Providers Care Proteomics Scientist Name Role Phone Orlando Mercer Unavailable [phone] Lino James MD Primary Care Provider [phone] Allergies No known active allergies Medications aspirin (ECOTRIN) 81 mg enteric coated tablet Take 1 tablet by mouth once daily with a meal. 0 5 Active acetaminophen (TYLENOL) 325 mg tabletIndicati ons:Endometria l cancer (HC) Take 1-2 tablets by mouth every 4 hours if needed. Max acetaminophen dose: 4000mg in 24 hrs. 100 tablet 9 Active atenoloL (TENORMIN) 25 mg tabletIndicati ons:HTN (hypertension) Take 1 Tablet (25 mg) by mouth once daily. 90 Tablet 3 5 Active amLODIPine (NORVASC) 5 mg tabletIndicati ons:HTN (hypertension) Take 1 Tablet (5 mg) by mouth once daily. 90 Tablet 3 5 Active zanubrutinib 80 mg capsule Take 80 mg by mouth two times daily. 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 07/30/2024 Severe mitral regurgitation 07/14/2024 PAF (paroxysmal atrial fibrillation) 09/23/2018 Congestive heart failure 09/23/2018 Endometrial cancer 07/24/2018 CKD (chronic kidney disease) stage 3, GFR 30-59 ml/min 01/13/2016 HTN (hypertension) 11/02/2015 BCC (basal cell carcinoma of skin) 06/16/2009 Overview (06/16/2009): On Back - excised by Dr Meza 11/2008 Melanoma of skin, site unspecified 02/07/2007 Overview (02/07/2007): left arm 1972 Resolved Problems Problem Noted Date Diagnosed Date Resolved Date Ventricular ectopy 09/23/2018 2 Systolic congestive heart failure 08/07/2017 01/02/2022 Systolic hypertension 10/13/20152016 Ingrown left big toenail 06/26/201001/2017 Colon polyps 06/26/2010 10/24/2020 Overview (09/18/2016): Colonoscopy 07/2011 normal, no further colonoscopy needed Insomnia, unspecified 06/16/20092016 Overview (06/16/2009): Will try Tylenol PM Unspecified essential hypertension 02/07/2007 10/13/2015 Hypopotassemia 02/07/2007 01/13/2016 Cardiac dysrhythmia, unspecified 02/07/2007 09/18/2016 Papanicolaou smear of cervix with low grade squamous intraepithelial lesion (LGSIL) 02/07/2007 09/18/2016 Nontoxic uninodular goiter 11/20/2002 0 09/18/2016 Encounters Date Type Department Care Team Description 08/25/2024 9:40 AM CDT Office Visit [facility] [address] [place] [address] Lino James MD Follow Up 08/25/2024 Travel 08/18/2024 Travel 07/14/2024 8:30 AM CDT Office Visit [facility] [address] [place] [address] Rajan Stack MD Consult (Congestive heart failure, severe mitral regurgitation per Dr. James ) 07/14/2024 Travel 06/16/2024 Telephone [facility] [address] [facility] [place] [address] Lino James MD Referral 06/04/2024 Telephone [facility] [address] [place] [address] Cherelle Acosta, BARROW WORKER Appointment 06/03/2024 Orders Only [facility] [address] [facility] [place] [address] Lino James MD <No scans attached> from Last 3 Months Immunizations Immunization Administration Dates Next Due AMB INFLUENZA IIV3 (AGE 65+ YRS) PF (Flu Clinic Only) 12/19/2018,12/20/2017 AMB Influenza, IIV3 (Age >=3 years)(Flu Clinic Only) 12/17/2011,12/18/2010 Amb Influenza, Inact (High-d ose) (Flu Clinic Only) 01/01/2014 Amb Influenza, Inactivated A IIV4 (Age 65+ Years) Preserv Free 12/08/2019 COVID-19 VACCINE SPIKEVAX (M ODERNA 50MCG/0.5ML) 12YO+ PFS 01/03/2023 COVID-19 vaccine (Pfizer-Bio NTech 30mcg/0.3mL) 12YO+ BIVALENT PF, MDV 01/02/2022 COVID-19 vaccine (Pfizer-Bio NTech 30mcg/0.3mL) PF, MDV 12/23/2020,05/14/2020,04/23/2020 Influenza Virus, Unspecified 12/20/2017 Influenza, High-dose Inactivated 12/20/2015,100 11/2014,01/01/2014 Influenza, IIV3 (Age >=3 years) 11/28/19 13,12/17/2011,01/09/2010,2009,12/09/2008,01/10/2008,01/08/2007,1 03/17/2005,12/27/2003,01/11/2003 Influenza, Inactivated AIIV4 (Age 65+ Years) Preserv Free 01/03/2023,12/01/2021,11/21/2020 Influenza, Inactivated IIV3 (Age 65+ Years) Preserv Free 01/21/2024,11/27/2016 Pneumococcal Poly,23-Valent (Pneumovax) 04/06/2008,11/19/2002 Pneumococcal conj 13-Valent (Prevnar 13) 07/11/2015 Td (Age >=7 Years) 12/27/2003 Tdap 05/21/2011 Zoster (Zostavax-ZVL, live) 08/03/2009 Family History Medical History Relation Name Comments Cancer Father Epifanio Bone & Spleen Hypertension Mother Lesvia Stroke Mother Lesvia Cancer Sister 1 Theresa Uterine & Othe rs Arthritis Sister 2 Sandy Heart Disease Sister 2 Sandy Cancer Son 1 Albino Basal Cell Ca Cancer-colon Son 2 Delfin Heart Disease Son 2 Delfin Stent 04/2010; Obese Anesthesia Problem No Family History Blood Disease No Family History Cancer-breast No Family History Malig Hyperthermia No Family History Relation Name Status Comments Brother Jaylen Alive Father Epifanio (Age 80) Mother Lesvia (Age 56) CVA Sister 1 Theresa (Age 72) Cancer Sister 2 Sandy Alive CAD Son 1 Albino Alive Son 2 Delfin Alive Social History Tobacco Use Types Packs/Day Years Used Date Smoking Tobacco: Never Smokeless Tobacco: Never Tobacco Cessation:Counseling Given: Yes Alcohol Use Standard Drinks/Week Comments No 0 (1 standard drink = 0.6 oz pur e alcohol) PHQ-2 Answer Date Recorded PHQ-2 TOTAL SCORE 0 04/28/2024 Social Connections Answer Date Recorded Do you often feel lonely or isolated from those around you? 0 04/28/2024 Financial Resource Strain Answer Date R ecorded Difficulty of Paying Living Expenses 3 04/28/2024 Difficulty of Paying Living Expenses Not on file 04/28/2024 Food Insecurity Answer Date Recorded Do you worry your food will run out before you are able to buy more? 1 04/28/2024 Transportation Needs Answer Date Record ed Does lack of transportation keep you from medica l appointments? 1 04/28/2024 Does lack of transportation keep you from work, meetings or getting things that you need? 1 04/28/2024 Housing Stability Answer Date Recorded What is your housing situation today? 1 04/28/2024 Utilities Answer Date Recorded Do you have trouble paying f or utilities (for example, heat, electricity, water, phone)? 1 04/28/2024 Comments No Sex and Gender Information Value Date Recorded Sex Assigned at Not on file Legal Sex Female 6:23 AM SALES AND MARKETING AGENT Gender Identity Not on file Sexual Orientation Not on file Occupation Industry Job Start Date Job End Date Retired Not on file Not on file Not on file Obstetrics History Para Term AB IAB SAB Ectopic Multiple Livin g Live Births 3 3 3 Date Outcome GA Total Labor Labor/2nd/3rd Weight Sex Type Anes PTL Renee A1 A5 Name Clin Para Comments:3# Toxemia; p remature Para Para Last Filed Vital Signs Vital Sign Reading Time Taken Comments Blood Pressure 133/72 08/25/2024 9:45 AM CDT Pulse 69 08/25/2024 9:45 AM CDT Temperature 36.6 C (97.8 F) 12/03/2023 8:23 AM CDT Respiratory Rate 18 11/11/2018 9:01 AM CDT Oxygen Saturation 100% 08/25/2024 9:45 AM CDT Inhaled Oxygen Concentration - - Weight 56.7 kg (125 lb 1.6 oz) 08/25/2024 9:45 A M CDT Height 162 cm (5' 3.78) 04/28/2024 4:05 PM SALES AND MARKETING AGENT Body Mass Index 21.62 04/28/2024 4:05 PM SALES AND MARKETING AGENT Plan of Treatment Upcoming Encounters Date Type Department Care Team (Late st Contact Info) Description 09/08/2024 2:15 PM CDT Orders Only [facility] [address] [place] [address] Lab, [place] [facility] Maintenance Due Date Last Done Comments Zoster (shingles) series for age 50+ (1 of 2) 09/28/2009 08/03/2009 RSV vaccine for adults or (1 - 1-dose 75+ series) 05/14/2010 Tetanus booster 05/20/2021 05/21/2011, 12/27/2003 COVID-19 vaccine series ( season) 2023 01/03/2023, 01/02/2022, 06/28/2021, Additional history exists BMI (ht and wt on same day) for age 18+ 04/28/2025 04/28/2024, 01/03/2023, 01/02/2022, Additional history exists Medicare Wellness for age 65+ 04/29/2025 04/28/2024, 01/03/2023, 01/02/2022, Additional history exists Depression screening for age 12+ 04/30/2025 04/30/2024, 04/28/2024, 01/03/2023, Additional history exists Tdap Completed 05/21/2011 DEXA/DXA scan for age 65+ Completed 07/05/2011, Pneumococcal series for age 50+ Completed 07/11/2015, 04/06/2008, 11/19/2002 Influenza Vaccine Completed 01/21/2024, , 12/01/2021, Additional history exists Hepatitis B series for 19+ Aged Out N o longer eligible based on patient's age to complete this topic Procedures Procedure Name Priority Date/Time Associated Diagnosis Comments XR DXA BONE DENSITY 2 SITES AXIAL Routine 07/05/2011 8:48 AM CDT Senile osteoporosis from Last 3 Months or Most Recently Relevant to Health Maintenance Results * XR DEXA BONE DENSITY 2 SITES (07/05/2011 8:48 AM CDT) Anatomical Region Laterality Modality Spine, HIPS, HIPL, HIPR Other Narrative 07/11/2011 11:26 AM CDT Please see scanned document for results of this study. Procedure Note Mary Rendon PA - 07/11/2011 Please see scanned document for results of this study. Les De La Garza MD DEXA Final Result from Last 3 Months or Most Recently Relevant to Health Maintenance Insurance MEDICARE PB ONLY [facility] MEDICARE PART B HB ONLY Advance Directives Documents on File Type Date Recorded Patient Longshore Equipment Operator Expl anation Healthcare Directive 08/08/2011 10:13 AM H CD * Full Code (Latest Code Status on File) Date Activated Date Inactivated Comments 09/17/2018 10:34 AM 09/18/2018 2:22 AM Question Answer Comments Code Status Discussion: Not Discussed * Full Code Date Activated Date Inactivated Comments 07/24/2018 10:01 AM 07/25/2018 5:35 PM Care Teams Proteomics Scientist Relationship Specialty Start Date End Date Lino James MD [address] [place] [id number] PCP - General Family Practice 03/19/13 Orlando Mercer [address] [place] [id number] Hand Ironer 07/02/11
--- OUTSIDE RECORDS SUMMARY | 2024-09-01 08:20 | XMS_ITS | Encounter Summary ---
Author Organization [facility] Address [address] [place] [address] Care Team Providers Care Head Pastry Chef Name Role Phone Unavailable Primary Care Provider Unavailabl e Encounter Details Date Type Department Care Team (Late st Contact Info) Description 08/19/2024 Results Follow-Up Division of Hematology in [place], [place] [address] [place] [address] Loni Escamilla RSenaitNSenait [address] [place] [address] CBC with Differential, Blood Social History Tobacco Use Types Packs/Day Years Used Date Smoking Tobacco: Never Smokeless Tobacco: Never Alcohol Use Standard Drinks/Week Comments Never 0 (1 standard drink = 0.6 oz pur e alcohol) [facility] Utilities Answer Date Recorded In the past 12 months has e electric, gas, oil, or water [employer] threatened to shut off services in your [...] your living situation today? I have a [facility] place to live 07/07/2024 Comments No Sex [...] PM CDT Telemedicine Division of Hematology in [place], [place] [address] [place] [address] Roger Mann M.D. [address] [place] [address] documented as of this encounter Visit Diagnoses Not on filedocumented in this encounter Additional Health Concerns Infection Onset Date Last Indicated Resolved Time Protective Environment 07/15/2024 07/15/2024 documented as of this encounter
--- OUTSIDE RECORDS SUMMARY | 2024-09-01 08:20 | XMS_ITS | Encounter Summary ---
Author Organization [facility] Address [address] [place] [address] Care Team Providers Care Chef Assistant Name Role Phone Unavailable Primary Care Provider Unavailabl e Encounter Details Date Type Department Care Team (Latest Contact Info) Description 07/30/2024 Specialty Pharmacy [facility] [address] [place] [address] Ching Shea, Pharm.D., R.Ph. [address] [place] [address] 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) (Primary Dx) Social History Tobacco Use Types Packs/Day Years Used Date Smoking Tobacco: Never Smokeless Tobacco: Never Alcohol Use Standard Drinks/Week Comments Never 0 (1 standard drink = 0.6 oz pur e alcohol) [facility] Utilities Answer Date Recorded In the [...] your living situation today? I have a [facility] place to live 07/07/2024 Comments No Sex and Gender Information Value Date Recorded Sex Assigned at Female 07/07/2024 9:11 PM CDT Legal Sex Female 3:08 PM CDT Gender Identity Female 07/07/2024 9:11 PM CDT Sexual Orientation Straight 07/07/2024 9: 11 PM CDT documented as of this encounter Miscellaneous Notes * Telephone Encounter - Ching Shea Pharm.D., R.Ph. - 07/30/2024 3:41 PM CDT SUBJECTIVE REASON FOR VISIT Patient counseling and education, via telephone, for new hematology/oncology medication therapy andestablishing medication reassessment timeline. HISTORY OF PRESENT ILLNESS Ms. Sari Ahmadi is a 89 y.o. female, who is followed by the specialty pharmacy service for Brukinsa (zanubrutinib) for Waldenstrom's Macroglobulinemia. Medication reconciliation: [facility] Daughter verified medication list is up to date, last reviewed 07/13/24 OBJECTIVE Lab Results Component Value Date CREATININE 1.15 (H) 07/02/2024 EGFR 46 (L) 07/02/2024 Lab Results Component Value Date HGB 11.1 (L) 07/02/2024 HGB 12.2 01/03/2023 HGB 11.9 (L) 12/01/2021 WBC 9.8 (H) 07/02/2024 WBC 7.4 01/03/2023 WBC 8.8 12/01/2021 PLT 282 07/02/2024 PLT 267 01/03/2023 PLT 276 12/01/2021 ASSESSMENT / PLAN 1. Medication counseling/education I counseled the patient's child, Franchesca via phone. Education related to medication: Brukinsa (zanubrutinib): Dose/directions: 80 mg two times a day Duration: Duration per tolerance/provider. Proper use: Swallow whole at about the same time each day. Brukinsa should not be cut, crushed, broken, or chewed. A missed dose can be taken as soon as remembered on the same day, return to usual schedule the next day. Timely administration/intake: Take the medication at approximately the same time each day. A smartphone application or calendar can be used. Storage/handling: The capsules should be stored at room temperature away from heat, moisture, and direct light. Side effects: Common side effects including but not limited to: bruising, rash, diarrhea, cough, upper respiratory infection, and decreased blood cell counts (neutrophils, white blood cells, red blood cells, platelets). Other potential warnings/safety precautions: hemorrhage, infections, decreased blood cell counts, heart rhythm problems, increased risk of new cancers Lifestyle and self-management skills/ Tips to prevent adverse drug reactions: Important to keep appointments/have lab monitoring. Patient should report signs of infection (fever, chills) and bleedingfor early management. Patient should report symptoms consistent with the before mentioned warnings.If a surgery is planned, the risks and benefits of holding the medication should be considered. Sunprotection should be utilized. Interactions (drug/food interactions): Drug interactions referenced in #2 below. Food: Not specified in product labeling, however theoretically, grapefruit could impact Brukinsa exposure. Several interactions are possible with herbal supplements, especially those with antiplatelet effects like green tea, fish oil, and vitamin E. Contraindications/ considerations: Females of reproductive potential should avoid while taking medication and for at least 1 week after last dose. Male patients with female partners who can become should use contraception during treatment and for at least 1 week after last dose. Educational resource/decision support tools: www.[employer] and patient support programs on that site as well as [facility]. The caregiver was attentive and ready to learn. They verbalized understanding and are in agreement with the plan for taking this new regimen. They were advised to contact the prescriber concerning symptoms or side effects as mentioned above. The importance of adherence to the treatment plan was emph asized in regard to success of therapy. Allergy, past sensitivity, medication and health history considered at travel counselor automobile club (renal function if available). To optimize outcomes, patient assessed for the need of other possible supportive therapies and informed of importance of proper monitoring and future reassessment. The patient/caregiver's prior education on this new therapy and disease specific knowledge were assessed with counseling and education tailored to this level of understanding. Real concerns and questions were addressed. Patient specific considerations/desires/requests noted at travel counselor automobile club:None noted at this time. Parent/Guardian/Caregiver to administer the medication(s). No social, environmental, functional or cognitive barriers are apparent. Patient is eligible for service through [facility]. Links to access additional resources (financial, community), pharmacy contact information and disposal information included in dispensed 'Welcome Packet' and/or printed materials provided with the prescription. The patient/caregiver was encouraged to ask questions or to call the specialty pharmacy with questions they may have after reviewing printed material. 2. Potential drug-drug interactions No clinically significant drug interactions were identified with Brukinsa (zanubrutinib). Specialty medication(s) reconciled and good sai attempt made in obtaining a complete medication list. Patient encouraged to report any new or change of medications (prescribed/over the counter/supplements) to assist in maintaining this list for accuracy. 3. Goals of therapy and other expectations/outcomes: Optimize medication adherence. Evaluate/prevent drug-drug and drug-disease interactions. Minimize, prevent and/or manage side effects. The patient has decided to use the [facility]. Follow-up: 1 month(s) Peggy Arvizu.D., R.Ph. documented in this encounter Plan of Treatment Upcoming Encounters Date Type Department Care Team (Late st Contact Info) Description 09/15/2024 2:00 PM CDT Telemedicine Division of Hematology in [place], [place] [address] [place] [address] Roger Mann M.D. [address] [place] [address] documented as of this encounter Visit Diagnoses Diagnosis 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)- Primary documented in this encounter Additional Health Concerns Infection Onset Date Last Indicated Resolved Time Protective Environment 07/15/2024 07/15/2024 documented as of this encounter
--- OUTSIDE RECORDS SUMMARY | 2024-09-01 08:20 | XMS_ITS | Encounter Summary ---
Author Organization [facility] Address [address] [place] [address] Care Team Providers Care Drug Abuse Technician Name Role Phone Unavailable Primary Care Provider Unavailabl e Encounter Details Date Type Department Care Team (Late st Contact Info) Description 07/20/2024 Orders Only Pharmacy Prior Auth [place] [phone] Camille Mc [address] [place] [address] Social History Tobacco Use Types Packs/Day Years Used Date Smoking Tobacco: Never Smokeless Tobacco: Never Alcohol Use Standard Drinks/Week Comments Never 0 (1 standard drink = 0.6 oz pur e alcohol) [facility] Utilities Answer Date Recorded In the past [...] your living situation today? I have a [facility] place to live 07/07/2024 Comments No [...] PM CDT Telemedicine Division of Hematology in [place], [place] [address] [place] [address] Roger Mann M.D. [address] [place] [address] documented as of this encounter Visit Diagnoses Not on filedocumented in this encounter Additional Health Concerns Infection Onset Date Last Indicated Resolved Time Protective Environment 07/15/2024 07/15/2024 documented as of this encounter
--- OUTSIDE RECORDS SUMMARY | 2024-09-01 08:20 | XMS_ITS | Encounter Summary ---
Author Organization [facility] Address [address] [place] [address] Care Team Providers Care Branch Director Name Role Phone Unavailable Primary Care Provider Unavailabl e Encounter Details Date Type Department Care Team (Late st Contact Info) Description 08/18/2024 Orders Only Division of Hematology in [place], [place] [address] [place] [address] External, Ordering ProviderInna Social History Tobacco Use Types Packs/Day Years Used Date Smoking Tobacco: Never Smokeless Tobacco: Never Alcohol Use Standard Drinks/Week Comments Never 0 (1 standard drink = 0.6 oz pur e alcohol) [facility] Utilities Answer Date Recorded In the past [...] your living situation today? I have a [facility] place to live 07/07/2024 Comments No Sex [...] PM CDT Telemedicine Division of Hematology in [place], [place] [address] [place] [phone] Roger Mann M.D. [address] [place] [address] documented as of this encounter Procedures Procedure Name Priority Date/Time Associated Diagnosis Comments CBC WITH DIFFERENTIAL, B Routine 08/18/2024 9:47 AM CDT documented in this encounter Results * (ABNORMAL) CBC with Differential, Blood (08/18/2024 9:47 AM CDT) EXT Leukocytes 6.3 3.8 - 10.8 Thousand/u [...] AM. Dr. Mann us Ordering Provider External [facility] BLOOD ADD-ON Final Result SCANNED REPORT documented in this encounter Visit Diagnoses Not on filedocumented in this encounter Additional Health Concerns Infection Onset Date Last Indicated Resolved Time Protective Environment 07/15/2024 07/15/2024 documented as of this encounter
--- OUTSIDE RECORDS SUMMARY | 2024-09-01 08:20 | XMS_ITS | Encounter Summary ---
Author Organization [facility] Address [address] [place] [address] Care Team Providers Care Regulatory Coordinator Name Role Phone Unavailable Primary Care Provider Unavailabl e Encounter Details Date Type Department Care Team (Late st Contact Info) Description 07/30/2024 Specialty Pharmacy [facility] [id number] [place] [address] Elissa Frey, Pharm.D., R.Ph. [address] [place] [address] Social History Tobacco Use Types Packs/Day Years Used Date Smoking Tobacco: Never Smokeless Tobacco: Never Alcohol Use Standard Drinks/Week Comments Never 0 (1 standard drink = 0.6 oz pur e alcohol) [facility] Utilities Answer Date Recorded In [...] your living situation today? I have a [facility] place to live 07/07/2024 Comments No Sex and Gender Information Value Date Recorded Sex Assigned at Female 07/07/2024 9:11 PM CDT Legal Sex Female 3:08 PM CDT Gender Identity Female 07/07/2024 9:11 PM CDT Sexual Orientation Straight 07/07/2024 9: 11 PM CDT documented as of this encounter Miscellaneous Notes * Telephone Encounter - Elissa Frey Pharm.D., R.Ph. - 07/30/2024 3:12 PM CDT This encounter was created in error - please disregard. documented in this encounter Plan of Treatment Upcoming Encounters Date Type Department Care Team (Late st Contact Info) Description 09/15/2024 2:00 PM CDT Telemedicine Division of Hematology in [place], [place] [address] [place] [address] Roger Mann M.D. [address] [place] [address] documented as of this encounter Visit Diagnoses Not on filedocumented in this encounter Additional Health Concerns Infection Onset Date Last Indicated Resolved Time Protective Environment 07/15/2024 07/15/2024 documented as of this encounter
--- OUTSIDE RECORDS SUMMARY | 2024-09-01 08:20 | XMS_ITS | Encounter Summary ---
Author Organization [facility] Address [address] [place] [address] Care Team Providers Care Vacation Sales Advisor Name Role Phone Unavailable Primary Care Provider Unavailabl e Reason for Visit * Reason Onset Date Comments Specialty Pharmacy Delivery 07/30/2024 Encounter Details Date Type Department Care Team (Latest Contact Info) Description 07/30/2024 Clinical Communication [facility] [id number] [place] [phone] Kaya Dolan C.Ph.T. [address] [place] [address] Specialty Pharmacy Delivery Social History Tobacco Use Types Packs/Day Years Used Date Smoking Tobacco: Never Smokeless Tobacco: Never Alcohol Use Standard Drinks/Week Comments Never 0 (1 standard drink = 0.6 oz pur e alcohol) [facility] Utilities Answer Date Recorded In the past 12 months has th e electric, gas, oil, or water company [...] your living situation today? I have a [facility] place to live 07/07/2024 Comments No Sex [...] PM CDT Telemedicine Division of Hematology in [place], [place] [address] [place] [address] Roger Mann M.D. [address] [place] [address] documented as of this encounter Visit Diagnoses Not on filedocumented in this encounter Additional Health Concerns Infection Onset Date Last Indicated Resolved Time Protective Environment 07/15/2024 07/15/2024 documented as of this encounter
--- OUTSIDE RECORDS SUMMARY | 2024-09-01 08:20 | XMS_ITS | Encounter Summary ---
Author Organization [facility] Address [address] [place] [address] Care Team Providers Care Flame Cutter Name Role Phone Unavailable Primary Care Provider Unavailabl e Encounter Details Date Type Department Care Team (Late st Contact Info) Description 07/21/2024 Specialty Pharmacy [facility] [address] [place] [phone] Manpreet Sagastume, Pharm.D., R.Ph. [address] [place] [address] Social History Tobacco Use Types Packs/Day Years Used Date Smoking Tobacco: Never Smokeless Tobacco: Never Alcohol Use Standard Drinks/Week Comments Never 0 (1 standard drink = 0.6 oz pur e alcohol) [facility] Utilities Answer Date Recorded In [...] your living situation today? I have a [facility] place to live 07/07/2024 Comments No Sex and Gender Information Value Date Recorded Sex Assigned at Female 07/07/2024 9:11 PM CDT Legal Sex Female 3:08 PM CDT Gender Identity Female 07/07/2024 9:11 PM CDT Sexual Orientation Straight 07/07/2024 9: 11 PM CDT documented as of this encounter Miscellaneous Notes * Telephone Encounter - Manpreet Sagastume, Pharm.D., R.Ph. - 07/21/2024 2:22 PM CDT Note created for purposes of potential enrollment with [facility] and medication interaction check via [employer] interaction linen checker. No telephone contact with patient at this point. documented in this encounter Plan of Treatment Upcoming Encounters Date Type Department Care Team (Late st Contact Info) Description 09/15/2024 2:00 PM CDT Telemedicine Division of Hematology in [place], [place] [address] [place] [address] Roger Mann M.D. [address] [place] [address] documented as of this encounter Visit Diagnoses Not on filedocumented in this encounter Additional Health Concerns Infection Onset Date Last Indicated Resolved Time Protective Environment 07/15/2024 07/15/2024 documented as of this encounter
--- NOTE | 2024-09-01 08:44 | CRLHL7_ITS ---
For Patients: As a result of the Century Cures Act, medical imaging exams and procedure reports are released immediately into your electronic medical record. You may view this report before your referring provider. If you have questions, please contact your health care provider. INDICATION: Chest pain. TECHNIQUE: Chest 2 views. COMPARISON: Chest radiograph 03/10/2024 FINDINGS: Cardiovascular and mediastinum: Heart size is normal. Unremarkable mediastinum. Lungs and pleural spaces: Atelectasis and scarring in the lung bases is increased compared to prior. New right perihilar prominence. New area of nodularity seen in the lower lobes, only seen on lateral view measuring 0.6 centimeters. No pneumothorax or pleural effusion. Bones and soft tissues: No significant findings. IMPRESSION: Increased atelectasis and scarring in the lung bases. New right perihilar prominence, which may be related to mild pulmonary vascular congestion or infection. New 0.6 centimeter nodule in a lower lobe, only seen on lateral view. This may be infectious/inflammatory. Consider short interval follow-up chest radiograph or CT chest in 3-4 months. Dictated by Tootie Eid MD @ 09/01/2024 9:42:14 AM (Electronically Signed)
--- NOTE | 2024-09-01 08:48 | ED.CHESTPAIN ---
HPI - Chest Pain General Date Seen: 09/01/24 Chief Complaint: Flank Pain Stated Complaint: chest pain Time Seen by Provider: 09/01/24 08:23 Source: patient and family Mode of arrival: ambulatory Limitations: no limitations History of Present Illness HPI narrative: Patient is a 89-year-old female who presents here with family, ambulatory for evaluation of left-sided chest pain, this occurred yesterday, greater than 16 hours ago. She does not remember what she was doing when the pain came on, but she does know that if she puts her hand over the spot on her left mid axillary line, on the ribs, the pain is markedly improved when she sits twists turns or takes a deep breath in she notices the pain. She denies any nausea any vomiting associated with this, does not seem to be worse when she is up walking around. There is no referral pattern to her neck back or shoulders. She has never before had this she denies any falls or any injury that this may have caused, she has not taken anything for the discomfort, but is here today with her daughter and her . 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 Treatment prior to arrival: none Risk Factors Coronary artery disease risk factors: none Thoracic aortic dissection risk factors: none Related Data On Oral Contraceptives: No Home Medications ?Medication ?Instructions ?Recorded ?Confirmed amlodipine 5 mg tablet 5 mg PO DAILY 01/25/23 09/01/24 atenolol 25 mg tablet 25 mg PO QDAY 07/15/23 09/01/24 aspirin 81 mg tablet,delayed 81 mg PO DAILY 03/10/24 03/10/24 release (Adult Aspirin Regimen) Previous Rx's ?Medication ?Instructions ?Recorded cephalexin 500 mg capsule 500 mg PO QID #20 caps 03/10/24 ondansetron 4 mg disintegrating 4 mg PO Q6H #20 tabs 03/10/24 tablet oseltamivir 30 mg capsule 30 mg PO BID 5 days #10 caps 03/10/24 levofloxacin 500 mg tablet 500 mg PO DAILY 10 days #10 tabs 09/01/24 oxycodone 5 mg tablet 2.5 mg (1/2 x 5 mg) PO Q12H PRN 09/01/24 pain #14 tabs Allergies Allergy/AdvReac Type Severity Reaction Status Date / Time No Known Drug Allergies Allergy Verified 09/01/24 10:45 Review of Systems Status of ROS Reports: 10 or more systems reviewed and unremarkable except as noted in History and below [facility] Social History Smoking Status: Never smoker How often do you have a drink containing alcohol: never AUDIT-C Alcohol total score: 0 Non-prescribed substance use: denies use Exam Narrative Exam Narrative: On examination in room 8 she appears to be in no apparent distress, she winces when I press on the left mid axillary line approximately ribs 9 through 10. There is no bruising over this area noted. She is nontoxic looking, in her vital signs are listed in otherwise okay. Pupils are equal round reactive to light there is no scleral icterus redness TMs are normal oropharynx normal, neck is supple full range of motion, some mild scoliosis over her back and she has quite a few seborrheic keratosis is noted on her back. Chest is good air entry bilaterally with a little bit of splinting on the left when she takes a deep breath in heart sounds no clicks murmurs or gallops her abdomen is soft, there is no tenderness to palpation no organomegaly or masses noted, bowel sounds are normal pelvis normal stable, she moves her extremities independently well with really absence of any edema. Skin reveals no petechiae rashes. Neurologically intact. Moving her upper lower extremities. Cranial nerves 3-12 are normal. Const Vital Signs, click to edit/add: Vital Signs - 24 hr 09/01/24 08:28 09/01/24 08:50 09/01/24 09:35 Temperature 98.1 F Pulse Rate Pulse Rate [Pulse Oximeter] 97 Respiratory Rate 20 21 Blood Pressure 165/80 H Blood Pressure [Right Upper Arm] 158/109 H Pulse Oximetry 95 94 Oxygen Delivery Method Room Air 09/01/24 09:45 09/01/24 10:00 09/01/24 10:03 Temperature Pulse Rate 74 86 88 Pulse Rate [Pulse Oximeter] Respiratory Rate 20 19 15 Blood Pressure 158/90 H Blood Pressure [Right Upper Arm] Pulse Oximetry 89 93 91 Oxygen Delivery Method 09/01/24 10:15 09/01/24 10:30 09/01/24 10:32 Temperature Pulse Rate 78 79 77 Pulse Rate [Pulse Oximeter] Respiratory Rate Blood Pressure 146/79 H Blood Pressure [Right Upper Arm] Pulse Oximetry 93 89 89 Oxygen Delivery Method 09/01/24 11:00 09/01/24 11:03 09/01/24 11:15 Temperature Pulse Rate 93 89 97 Pulse Rate [Pulse Oximeter] Respiratory Rate 14 19 Blood Pressure 139/83 Blood Pressure [Right Upper Arm] Pulse Oximetry 93 93 93 Oxygen Delivery Method Course Course ED Course: Patient has done well, she remains in controlled rate less than the 100. No chest pain no shortness of breath, x-ray showed a left-sided 9th rib fracture, nondisplaced. She is also in atrial flutter, which I can tell is new or old, given her history of severe mitral regurgitation and left atrial enlargement on her echo, I suspect that it has been for some time, I will have her follow-up with her doctor to discuss use of anticoagulants, as she has controlled rate here, and really asymptomatic I think we have to the element of time here. Chest CT did show that they favor pneumonia as a cause, I will try some Levaquin to see we can clear this up, which she will need follow-up imaging for this. For rib fracture thing Tylenol ibuprofen some oxycodone for breakthrough pain although I do worry about given her age, I went over this with the family, no use of alcohol, and I would use this very sparingly half a tablet. Rib belts are not use now for this. We want her to breathe as much as possible, and follow up if any further worsening Vital Signs Vital signs: Initial Vital Signs Temperature 98.1 F 09/01/24 08:28 Temperature Source Temporal Artery Scan 09/01/24 08:28 Pulse Rate 97 09/01/24 08:28 Respiratory Rate 20 09/01/24 08:28 Blood Pressure 158/109 H 09/01/24 08:28 Blood Pressure Mean 125 H 09/01/24 08:28 Pulse Oximetry 95 09/01/24 08:28 Oxygen Delivery Method Room Air 09/01/24 08:28 Vital Signs Temperature 98.1 F 09/01/24 08:28 Pulse Rate 97 09/01/24 08:28 Respiratory Rate 20 09/01/24 08:28 Blood Pressure 158/109 H 09/01/24 08:28 Pulse Oximetry 95 09/01/24 08:28 Oxygen Delivery Method Room Air 09/01/24 08:28 Temperature 98.1 F 09/01/24 08:28 Pulse Rate 97 09/01/24 11:15 Respiratory Rate 19 09/01/24 11:15 Blood Pressure 139/83 09/01/24 11:03 Pulse Oximetry 93 09/01/24 11:15 Oxygen Delivery Method Room Air 09/01/24 08:28 Medications Administered Medications: Discontinued Medications Generic Name Dose Route Start Last Admin Trade Name Anthony PRN Reason Stop Dose Admin Aspirin 324 mg 09/01/24 08:44 09/01/24 09:09 Aspirin 81 Mg Tab.Chew PO 09/01/24 08:45 324 mg ONCE ONE Administration MDM - Chest Pain MDM Narrative Medical decision making narrative: During the evaluation of this patient I considered multiple differential diagnosis is. The life-threatening differential diagnosis include coronary disease/MT, pulmonary embolism, pneumothorax, pneumonia, and aortic dissection. Other differential diagnosis included but were not limited to pericarditis, myocarditis, chest wall pain, GERD, esophageal rupture, rib fracture contusion, pleurisy, as well as other etiologies. This seems to be more likely musculoskeletal in nature, although you can be burn by this. I will do an EKG, a blood test, chest x-ray. With left rib views. Medical Records Data Attestation: I reviewed the patient's medical records. Lab Data Attestation: I reviewed the patient's lab results. Labs: Lab Results 09/01/24 Range/Units 09:00 WBC 6.95 (4.50-11.00) K/uL RBC 3.52 L (4.00-5.20) m/uL Hgb 11.2 L (12.0-16.0) gm/dL Hct 34.3 (33.0-51.0) % MCV 97 (80-100) fL MCH 32 (26-34) pg MCHC 33 (32-36) gm/dL RDW Coeff of Colby 11.8 (11.5-15.5) % Plt Count 253 (140-440) K/uL Neut % (Auto) 63.7 (42.0-72.0) % Lymph % (Auto) 21.4 (20-44) % Piatt % (Auto) 13.4 H (0.0-11.0) % Eos % (Auto) 0.9 (0.0-7.0) % Baso % (Auto) 0.3 (0.0-3.0) % Neut # (Auto) 4.43 (1.7-7.0) K/uL Lymph # (Auto) 1.49 (0.90-2.90) K/uL Piatt # (Auto) 0.90 (0.00-0.90) K/UL Eos # (Auto) 0.06 (0.00-0.50) K/uL Baso # (Auto) 0.02 (0.00-0.30) K/uL Abs Immat Gran (auto) 0.02 (0.00-0.30) K/uL Imm/Tot Granulo (auto) 0.3 % INR 1.03 (0.91-1.10) APTT 26 (23-33) Seconds D-Dimer Quant (PE/DVT) 1.06 H (0.00-0.50) ug/ml Sodium 139 (135-149) mmol/L Potassium 4.2 (3.6-5.1) mmol/L Chloride 104 (96-114) mmol/L Carbon Dioxide 29 (20-32) mmol/L Anion Gap 6 L (7-15) mEq/L BUN 16 (7-30) mg/dL Creatinine 1.0 (0.5-1.5) mg/dL Estimated Creat Clear 34.32 Estimated GFR 54 ml/min Glucose 101 (60-115) mg/dL Calcium 9.0 (8.4-10.6) mg/dL NT-Pro-B Natriuret Pep 7620 H (See Note) pg/mL POC Troponin I 0.02 (0.01-0.04) ng/ml Imaging Data CT scan - chest: Radiologist's impression: [place] [address] Diagnostic Imaging Report Patient: Sari Ahmadi MR#: [id number] : 1935 Acct:[id number] Loc: ED Service Date: 09/01/[address]: Ordering Physician: Escobar Méndez M.D. Date of Service: 09/01/24 Procedure(s): CT angio chest PE protocol Accession Number(s): [id number] cc: Lino James M.D.; Escobar Méndez M.D.~ For Patients: As a result of the Century Cures Act, medical imaging exams and procedure reports are released immediately into your electronic medical record. You may view this report before your referring provider. If you have questions, please contact your health care provider. Indication: SOB. ELEVATED D DIMER. FALL Technique: CTA chest, pulmonary embolism protocol, utilizing 95 mL Isovue 370 Comparison: None Findings: No thyroid nodules. Right hilar lymphadenopathy. Cardiomegaly. Small pericardial effusion. The thoracic aorta and pulmonary artery are normal in caliber. There is no pulmonary embolism. Small right and trace left pleural effusions. Interlobular septal thickening and mosaic attenuation of the lung parenchyma, likely secondary to pulmonary interstitial edema. There are a few nodular like consolidative opacities seen in the right lower lobe with some adjacent ground-glass opacifications. The airways are clear. The imaged upper abdomen is without acute abnormality. Numerous left renal cysts. T11 vertebral body hemangioma; otherwise, the bones are unremarkable in appearance for the patient`s age. Impression: 1. No pulmonary embolism. 2. Cardiomegaly with small pericardial effusion and small right and trace left pleural effusions. Regions of interlobular septal thickening and mosaic attenuation throughout the lungs, favored to represent pulmonary interstitial edema. 3. There are few nodular like consolidative opacities seen in the right lower lobe with right hilar lymphadenopathy. While this is favored to represent pneumonia, malignant pulmonary nodules cannot entirely be excluded, particularly given the size of the right hilar lymph nodes, and patient will need a subsequent CT chest approximally 8 weeks after completion of any treatment to exclude persistent pulmonary nodules. Please note that all CT scans at this facility use dose modulation, iterative reconstruction, and/or weight-based dosing when appropriate to reduce radiation dose to as low as reasonably achievable. Dictated by Salvador Marcano MD @ 09/01/2024 11:08:00 AM (Electronically Signed)[address] [address] Diagnostic Imaging Report Patient: Sari Ahmadi MR#: [id number] : 1935 Acct:[id number] Loc: ED Service Date: 09/01/[address]: Ordering Physician: Escobar Méndez M.D. Date of Service: 09/01/24 Procedure(s): XR ribs LT 2V Accession Number(s): [id number] cc: Lino James M.D.; Escobar Méndez M.D.~ For Patients: As a result of the Cures Act, medical imaging exams and procedure reports are released immediately into your electronic medical record. You may view this report before your referring provider. If you have questions, please contact your health care provider. INDICATION: Chest pain TECHNIQUE: Left ribs 2 views. COMPARISON: None. FINDINGS/IMPRESSION: Bones: Possible nondisplaced fracture of the left 9th lateral rib. Dictated by Tootie Eid MD @ 09/01/2024 9:44:11 AM (Electronically Signed)[place] [address] Diagnostic Imaging Report Patient: Sari Ahmadi MR#: [id number] : 1935 Acct:[id number] Loc: ED Service Date: 09/01/[address]: Ordering Physician: Escobar Méndez M.D. Date of Service: 09/01/24 Procedure(s): XR chest 2V Accession Number(s): [id number] cc: Lino James M.D.; Escobar Méndez M.D.~ For Patients: As a result of the Cures Act, medical imaging exams and procedure reports are released immediately into your electronic medical record. You may view this report before your referring provider. If you have questions, please contact your health care provider. INDICATION: Chest pain. TECHNIQUE: Chest 2 views. COMPARISON: Chest radiograph 03/10/2024 FINDINGS: Cardiovascular and mediastinum: Heart size is normal. Unremarkable mediastinum. Lungs and pleural spaces: Atelectasis and scarring in the lung bases is increased compared to prior. New right perihilar prominence. New area of nodularity seen in the lower lobes, only seen on lateral view measuring 0.6 centimeters. No pneumothorax or pleural effusion. Bones and soft tissues: No significant findings. IMPRESSION: Increased atelectasis and scarring in the lung bases. New right perihilar prominence, which may be related to mild pulmonary vascular congestion or infection. New 0.6 centimeter nodule in a lower lobe, only seen on lateral view. This may be infectious/inflammatory. Consider short interval follow-up chest radiograph or CT chest in 3-4 months. Dictated by Tootie Eid MD @ 09/01/2024 9:42:14 AM (Electronically Signed) ECG Data Attestation: I personally reviewed and interpreted this ECG as follows: ECG interpretation date: 09/01/24 Prior ECG tracings: available for review Interpretation: EKG shows atrial flutter with the variable mostly 2-3 to 1 block. Poor R-wave progression, no significant ST wave depression or elevation noted. In comparison to old EKG I can see from 2021 from the [facility] chart, the atrial flutter appears to be new. Discharge Plan Discharge Clinical Impression: Left rib fracture, Atrial flutter, Pneumonia Patient Disposition: Home w/ Parent or Adult Condition: Stable Instructions: Atrial Flutter (DC), Rib Fracture (ED), Community Acquired Pneumonia (DC) Additional Instructions: Home rest use of Tylenol and/or ibuprofen, for pain of your rib fracture, I have given you something slightly stronger you should take half a pill of this up to every 8-12 hours, it is very constipating and can make he dizzy so I would just reserve this as very very seldom. Take the antibiotic as needed, he will need follow-up with your regular physician later this week. To ensure that sure not getting worse, increasing chest pain shortness of breath palpitations dizziness she should come back to the emergency room. Activity Level: Light activity Discharge Diet: Regular Prescriptions: New levofloxacin 500 mg tablet 500 mg PO DAILY 10 Days Qty: 10 0RF oxycodone 5 mg tablet 2.5 mg PO Q12H PRN (Reason: pain) Qty: 14 0RF No Action amlodipine 5 mg tablet 5 mg PO DAILY atenolol 25 mg tablet 25 mg PO QDAY aspirin [Adult Aspirin Regimen] 81 mg tablet,delayed release (DR/EC) 81 mg PO DAILY cephalexin 500 mg capsule 500 mg PO QID Qty: 20 0RF ondansetron 4 mg tablet,disintegrating 4 mg PO Q6H Qty: 20 0RF oseltamivir 30 mg capsule 30 mg PO BID 5 Days Qty: 10 0RF Follow Up/Referrals: Lino James MD [Primary Care Provider, Family Practice] Stand Alone Forms: CompleteSet Info Instructions
--- NOTE | 2024-09-01 08:52 | CRLHL7_ITS ---
For Patients: As a result of the Cures Act, medical imaging exams and procedure reports are released immediately into your electronic medical record. You may view this report before your referring provider. If you have questions, please contact your health care provider. INDICATION: Chest pain TECHNIQUE: Left ribs 2 views. COMPARISON: None. FINDINGS/IMPRESSION: Bones: Possible nondisplaced fracture of the left 9th lateral rib. Dictated by Tootie Eid MD @ 09/01/2024 9:44:11 AM (Electronically Signed)
[2024-09-01] MEDS: ASPIRIN 81 MG TAB.CHEW 324 MG PO (09:09)
[2024-09-01 09:12] LABS: Basophils Absolute Auto 0.02 K/uL (0.00-0.30); Basophils Percent Auto 0.3 % (0.0-3.0); Eosinophils Absolute Auto 0.06 K/uL (0.00-0.50); Eosinophils Percent Auto 0.9 % (0.0-7.0); Hematocrit 34.3 % (33.0-51.0); Hemoglobin* 11.2 gm/dL (12.0-16.0); Immature Granulocytes Abs Auto 0.02 K/uL (0.00-0.30); Immature Granulocytes Pct Auto 0.3 %; Lymphocytes Absolute Auto 1.49 K/uL (0.90-2.90); Lymphocytes Percent Auto 21.4 % (20-44); Mean Corpuscular HGB Conc 33 gm/dL (32-36); Mean Corpuscular Hemoglobin 32 pg (26-34); Mean Corpuscular Volume 97 fL (80-100); Monocytes Percent Auto 13.4 % (0.0-11.0); Neutrophils Absolute Auto 4.43 K/uL (1.7-7.0); Neutrophils Percent Auto 63.7 % (42.0-72.0); Platelet Count* 253 K/uL (140-440); RDW Coefficient of Variation % 11.8 % (11.5-15.5); Red Blood Count 3.52 m/uL (4.00-5.20); White Blood Count* 6.95 K/uL (4.50-11.00)
[2024-09-01 09:16] LABS: Slide Review Reflex No
[2024-09-01 09:19] LABS: Troponin, Point-of-Care* 0.02 ng/ml (0.01-0.04)
[2024-09-01 09:29] LABS: INR 1.03 (0.91-1.10); Partial Thromboplastin Time* 26 Seconds (23-33); Prothrombin Time 14.3 Seconds
[2024-09-01 09:32] LABS: D Dimer Quantitative* 1.06 ug/ml (0.00-0.50)
[2024-09-01 10:15] LABS: Chloride* 104 mmol/L (96-114); Potassium* 4.2 mmol/L (3.6-5.1); Sodium* 139 mmol/L (135-149)
[2024-09-01 10:18] LABS: Anion Gap 6 mEq/L (7-15); Blood Urea Nitrogen* 16 mg/dL (7-30); Carbon Dioxide* 29 mmol/L (20-32); Est. Creatinine Clearance* 34.32; Estimated Glomerular Filt Rate 54 ml/min
[2024-09-01 10:19] LABS: Glucose* 101 mg/dL (60-115)
--- NOTE | 2024-09-01 10:25 | CRLHL7_ITS ---
For Patients: As a result of the Century Cures Act, medical imaging exams and procedure reports are released immediately into your electronic medical record. You may view this report before your referring provider. If you have questions, please contact your health care provider. Indication: SOB. ELEVATED D DIMER. FALL Technique: CTA chest, pulmonary embolism protocol, utilizing 95 mL Isovue 370 Comparison: None Findings: No thyroid nodules. Right hilar lymphadenopathy. Cardiomegaly. Small pericardial effusion. The thoracic aorta and pulmonary artery are normal in caliber. There is no pulmonary embolism. Small right and trace left pleural effusions. Interlobular septal thickening and mosaic attenuation of the lung parenchyma, likely secondary to pulmonary interstitial edema. There are a few nodular like consolidative opacities seen in the right lower lobe with some adjacent ground-glass opacifications. The airways are clear. The imaged upper abdomen is without acute abnormality. Numerous left renal cysts. T11 vertebral body hemangioma; otherwise, the bones are unremarkable in appearance for the patient`s age. Impression: 1. No pulmonary embolism. 2. Cardiomegaly with small pericardial effusion and small right and trace left pleural effusions. Regions of interlobular septal thickening and mosaic attenuation throughout the lungs, favored to represent pulmonary interstitial edema. 3. There are few nodular like consolidative opacities seen in the right lower lobe with right hilar lymphadenopathy. While this is favored to represent pneumonia, malignant pulmonary nodules cannot entirely be excluded, particularly given the size of the right hilar lymph nodes, and patient will need a subsequent CT chest approximally 8 weeks after completion of any treatment to exclude persistent pulmonary nodules. Please note that all CT scans at this facility use dose modulation, iterative reconstruction, and/or weight-based dosing when appropriate to reduce radiation dose to as low as reasonably achievable. Dictated by Salvador Marcano MD @ 09/01/2024 11:08:00 AM (Electronically Signed)
[2024-09-01 10:35] LABS: NT Pro B Type NatriureticPept* 7620 pg/mL (See Note)
== END 2024-09-01 13:01 | disposition home or self-care (01) ==
PROVIDERS: Emergency Provider Family Medicine; PCP Surgery
DX: J18.9 Pneumonia, unspecified organism (principal); I48.92 Unspecified atrial flutter; S22.32XA Fracture of one rib, left side, initial encounter for closed fracture
CPT/HCPCS: 36415; 71046; 71100; 71275; 80048; 82270; 83880; 84484; 85025; 85379; 85610; 85730; 93005; 94761; 99284; 99285; A9270; Q9967